=== PATIENT | male | born 1965 | race Caucasian/White ===

== ENCOUNTER → 2017-04-21 | Outpatient (CLI) | payer MEDICARE, MEDICAID ==
--- NOTE | 2017-04-21 13:53 | Diagnostic Imaging Report ---
INDICATION: Lymph node enlargement in the right neck. FINDINGS: The right lobe of the thyroid measures 3.9 x 1.6 x 1.9 cm and left lobe measures 5.3 x 1.6 x 1.7 cm. There is a hypoechoic nodule in the mid right lobe of the thyroid measuring 9 mm x 9 mm x 5 mm. The left lobe contains a tiny nodule with calcification measuring approximately 7 mm. Evaluation of the area of lump in the right neck was also performed. There is an ovoid homogeneous slightly hypoechoic nodule measuring 1.1 x 0.6 x 1.4 cm. This is just below the skin surface superficial to the musculature and may represent a lipoma. IMPRESSION: 1. Probable lipoma in the right neck at the area of palpable abnormality. Clinical followup to confirm stability is recommended. 2. Bilateral thyroid nodules. No dominant thyroid mass is detected. Dictated by: Dictated on workstation # [id number]
== END ==
LOC: RAD 12:41
PROVIDERS: ATTEND Nurse Practitioner Community Health
DX: E04.2 Nontoxic multinodular goiter (principal)
CPT/HCPCS: 76536

== ENCOUNTER 2018-05-26 05:32 | Outpatient (CLI) | payer MEDICARE, MEDICAID ==
[~2018-05-26] VITALS: Ht 177.8 cm; Wt 90.7 kg
[2018-05-26] MEDS ORDERED: GABA300C PO (13:19)
[2018-05-26] MEDS ORDERED: BUPR300T43 PO (13:19)
[2018-05-26] MEDS ORDERED: UBIQ100C3 PO (13:19)
[2018-05-26] MEDS ORDERED: VARE1TAB22 PO (13:19)
[2018-05-26] MEDS ORDERED: SERT50TA2 PO (13:19)
[2018-05-26] MEDS ORDERED: TAMS0.4C2 PO (13:19)
[2018-05-26] MEDS ORDERED: PRAV40TA2 PO (13:19)
== END 2018-05-26 13:25 | disposition home or self-care (01) ==
LOC: PREOP 05:32
PROVIDERS: ATTEND Surgery
DX: Z01.818 Encounter for other preprocedural examination (principal)

== ENCOUNTER 2018-05-29 06:58 | Day surgery (SDC) | payer MEDICARE, MEDICAID ==
[~2018-05-29] VITALS: Ht 177.8 cm; Wt 90.7 kg
[~2018-05-29 06:58] MED LIST: BUPR300T43 PO; GABA300C PO; PRAV40TA2 PO; SERT50TA2 PO; TAMS0.4C2 PO; UBIQ100C3 PO; VARE1TAB22 PO
[2018-05-29 07:05] VITALS: BP 136/66
[2018-05-29] MEDS ORDERED: LACTATED RINGERS 1,000 ML IV PRN (07:05)
--- OUTSIDE RECORDS SUMMARY | 2018-05-29 07:09 | XMS REPORT ---
Author Author EMERSON CHOPRA Organization [facility] Address [address] [place] [address] Care Team Providers Care Neurological Surgeon Name Role Phone EMERSON CHOPRA Unavailable PROBLEMS Type Condition ICD9-CM Code NKX60-HC Code Onset Dates Condition Status SNOMED Code Problem Partner relational problem Z63.0 Active 7516896344236 Problem Other iron deficiency anemia D50.8 Active 69793424 Problem Abnormal CBC R79.89 Active 237729448 Problem Depressive disorder, not elsewhere classified F32.9 Active 08160982 Problem Eye exam abnormal R93.8 Active 684015322 ALLERGIES Substance Reaction Event Type Date Status Bananas Unknown Non Drug Allergy Feb, Active [place] Unknown Non Drug Allergy Feb, Active ENCOUNTERS Encounter Location Date Diagnosis [place] [id number] [place] [address]292- 2610 Feb, [facility] [address] [address] Feb, Tobacco abuse Z72.0 [facility] [id number] [place] [address] 40438- 8659 05 Nov, 2017 Lipoma of neck D17.0 ; Shortness of breath R06.02 and Acute left-sided thoracic back pain M54.6 [facility] [id number] [place] [id number] Sep, Encounter for dental examination Z01.20 [facility] [address] [address]- [address] May, Partner relational problem Z63.0 [facility] [id number] [place] [address] 10785- 8690 02 Apr, 2017 Partner relational problem Z63.0 [facility] [id number] [place] [address] 14149- 5619 Mar, Other iron deficiency anemia D50.8 [facility] [address] [address]95- 6401 Mar, Lymph node enlargement R59.9 and Other iron deficiency anemia D50.8 [facility] [id number] [place] [address] 71899- 8225 Mar, Partner relational problem Z63.0 [facility] [address] 8[address]87- 9382 Dec, [facility] [address] [id number] Dec, Dental examination Z01.20 [facility] [address] [address]- 0051 Oct, [facility] [address] 44843- 1712 Oct, [facility] [id number] [place] [address] 51545- 1070 Aug, Anemia, unspecified type D64.9 [facility] [id number] [place] [address] 14942- 4493 15 Apr, 2016 [facility] [id number] [place] [address] 27828- 0981 15 Apr, 2016 Depressive disorder, not elsewhere classified F32.9 [facility] [id number] [place] [address] 26623- 4893 15 Apr, 2016 Other fatigue R53.83 [facility] [address] [id number] 13 Mar, 2016 Encounter for dental examination Z01.20 [facility] [id number] [place] [address] [id number] Feb, Dental examination Z01.20 [facility] [address] 83137- 4272 May, [facility] [place] [facility] [address] [id number] [place] [address]- 7344 16 Apr, 2016 Vision changes H53.9 [facility] [place] [facility] [address] [id number] [place] [address]- 2796 14 Jun, 2014 [facility] [place] [facility] [address] [id number] [place] [address]- 8366 Jun, [facility] [place] [facility] [address] [id number] [place] [address]- 3365 Apr, [facility] [place] [facility] [address] [id number] [place] [address]- 4051 Apr, [facility] [place] [facility] [address] [id number] [place] [address]- 2968 Apr, [facility] [place] [facility] [address] [id number] [place] [address]- 8030 Apr, [facility] [place] [facility] [address] [id number] [place] [address]- 6646 Oct, [facility] [place] [facility] [address] [id number] [place] [address]- 1202 Oct, [facility] [place] [facility] [address] [id number] [place] [address]- 8258 Oct, [facility] [place] [facility] [address] [id number] [place] [address]- 0417 Oct, [facility] [place] [facility] [address] [id number] [place] [address]- 4272 Oct, [facility] [place] [facility] [address] [id number] [place] [address]- 4484 Oct, [facility] [place] [facility] [address] [id number] [place] [address] Sep, [facility] [place] [facility] [address] [id number] [place] [address]- 9470 Sep, [facility] [place] [facility] [address] [id number] [place] [address]- 0058 July, [facility] [place] [facility] [address] [id number] [place] [address]- 0988 July, [facility] [place] [facility] [address] [id number] [place] [address]- 3827 May, [facility] [place] [facility] [address] [id number] [place] [address]- 1495 May, [facility] [place] [facility] [address] [id number] [place] [address]- 3173 Apr, [facility] [place] [facility] [address] [id number] [place] [address]- 9579 Apr, [facility] [place] [facility] [address] [id number] [place] [address]- 3104 Mar, [facility] [place] [facility] [address] [id number] [place] [address]- 2198 Mar, [facility] [place] [facility] [address] [id number] [place] [address]- 8345 Oct, [facility] [place] [facility] [address] [id number] [place] [address]- 4815 Oct, [facility] [place] [facility] [address] [id number] [place] [address]- 7107 Oct, [facility] [place] [facility] [address] [id number] [place] [address]- 6060 Apr, [facility] [place] [facility] [address] [id number] [place] [address]- 8406 Feb, [facility] [place] [facility] [address] [id number] [place] [address]- 2981 Feb, [facility] [place] [facility] [address] [id number] [place] [address]- 7970 Jan, [facility] [place] [facility] [address] [id number] [place] [address]- 0861 Jan, [facility] [place] [facility] [address] [id number] [place] [address]- 4962 Dec, [facility] [place] [facility] [address] [id number] [place] [address]- 5117 Dec, [facility] [place] [facility] [address] [id number] [place] [address]- 0798 Dec, [facility] [place] [facility] [address] [id number] [place] [address]- 8096 Dec, [facility] [place] [facility] [address] [id number] [place] [address]- 2680 Dec, [facility] [place] [facility] [address] [id number] [place] [address]- 1545 Dec, [facility] [place] [facility] [address] [id number] [place] [address]- 8677 Nov, [facility] [place] [facility] [address] [id number] [place] [address]- 4968 17 Nov, 2011 [facility] [place] [facility] [address] [id number] [place] [address]- 1433 14 Nov, 2011 [facility] [place] [facility] [address] [id number] [place] [address]- 0411 Oct, [facility] [place] [facility] [address] [id number] [place] [address]- 8746 Sep, [facility] [place] [facility] [address] [id number] [place] [address]- 1408 Sep, [facility] [place] [facility] [address] [id number] [place] 0474 Sep, [facility] [place] [facility] [address] [id number] [place] [address]- 1506 Jun, [facility] [place] [facility] [address] [id number] [place] 5883 Jun, [facility] [address] [facility] [id number] [place] [address]- 1515 Jun, [facility] [address] [facility] [id number], [place] [address]- 4447 Feb, [facility] [address] [facility] [id number][place] [address]- 7455 Jan, [facility] [address] [facility] [id number], [place] [address]- 2121 July, IMMUNIZATIONS No Known Immunizations SOCIAL HISTORY Never Assessed REASON FOR VISIT Establish Care -KIMBER Fontanez PLAN OF CARE Activity Details Follow Up 2 Months Reason:smoking cessation and fasting labs VITAL SIGNS Height 70 in 2018-03-02 Weight 199.4 lbs 2018-03-02 Temperature 98.2 degrees Fahrenheit 2018-03-02 Heart Rate 90 bpm 2018-03-02 Respiratory Rate 18 2018-03-02 BMI 28.61 kg/m2 2018-03-02 Blood pressure systolic 128 mmHg 2018-03-02 Blood pressure diastolic 76 mmHg 2018-03-02 MEDICATIONS Medication Instructions Dosage Frequency Start Date End Date Duration Status Invega Trinza 410 MG/1.315ML 1.315 ml Active BuPROPion HCl 100 MG Orally Once a day 1 capsule 24h Active Tamsulosin HCl 0.4 MG Active Neurontin 300 MG Orally Once a day 1 capsule 24h Active Multi Complete Active Breo Ellipta Active Zoloft 50 MG Orally Once a day 1 tablet 24h Active Chantix Active RESULTS No Results PROCEDURES No Known procedures INSTRUCTIONS MEDICATIONS ADMINISTERED No Known Medications MEDICAL (GENERAL) HISTORY Type Description Date Medical History depression Medical History back trouble (pinched vertebrae) Medical History enlarged prostate Surgical History nasal reconstruction Surgical History tonsillectomy Surgical History colonoscy 2016 Hospitalization History surgeries Hospitalization History Mental Illness 2008
--- OUTSIDE RECORDS SUMMARY | 2018-05-29 07:09 | XMS REPORT ---
Author Author EMERSON CHOPRA Organization [facility] Address [address] [place] [address] Care Team Providers Care Apron Trimmer Name Role Phone EMERSON CHOPRA Unavailable PROBLEMS Type Condition ICD9-CM Code DWA55-FC Code Onset Dates Condition Status SNOMED Code Problem Other iron deficiency anemia D50.8 Active 57984143 Problem Partner relational problem Z63.0 Active 4371781003047 Problem Abnormal CBC R79.89 Active 486217253 Problem Eye exam abnormal R93.8 Active 755704356 Problem Depressive disorder, not elsewhere classified F32.9 Active 94100784 ALLERGIES Substance Reaction Event Type Date Status Bananas Unknown Non Drug Allergy Apr, Active [place] Unknown Non Drug Allergy Apr, Active ENCOUNTERS Encounter Location Date Diagnosis [place] [id number] [place] [address] 68137- 1312 May, [place] [address] [address]- 1534 Apr, [place] [id number] [place] [address] 69663- 0971 Apr, Lipoma of neck D17.0 ; Tobacco abuse Z72.0 and Screening, lipid Z13.220 [facility] [id number] [place] [address] 87902- 9058 Feb, [place] [address] [address]14- 9868 Feb, Tobacco abuse Z72.0 [place] [id number] [place] [address] 69292- 7159 05 Nov, 2017 Lipoma of neck D17.0 ; Shortness of breath R06.02 and Acute left-sided thoracic back pain M54.6 [facility] [address] [place] [address] [id number] Sep, Encounter for dental examination Z01.20 [facility] [id number] [place] [address] 887202- 7026 May, Partner relational problem Z63.0 [facility] [id number] [place] [address] 41336- 7375 Apr, Partner relational problem Z63.0 [facility] [id number] [place] [address] 00526- 8346 Mar, Other iron deficiency anemia D50.8 [facility] [id number] [place] [address] 42021- 7105 Mar, Lymph node enlargement R59.9 and Other iron deficiency anemia D50.8 [facility] [id number] [place] [address] 92744- 9165 Mar, Partner relational problem Z63.0 [facility] [id number] [place] [address] 05683- 9265 Dec, [facility] [id number] [place] [address] [id number] Dec, Dental examination Z01.20 [facility] [id number] [place] [address] 15094- 3728 Oct, [facility] [id number] [place] [address] 66418- 7597 Oct, [facility] [id number] [place] [address] 95668- 3958 Aug, Anemia, unspecified type D64.9 [facility] [id number] [place] [address] 11393- 6070 15 Apr, 2016 [facility] [id number] [place] [address] 35119- 9743 Apr, Depressive disorder, not elsewhere classified F32.9 [facility] [address], [place] [address]- 6999 15 Apr, 2016 Other fatigue R53.83 [facility] [id number] [place] [address] [id number] 13 Mar, 2016 Encounter for dental examination Z01.20 [facility] [address] [id number] Feb, Dental examination Z01.20 [facility] [id number] [place] [address] 07080- 6299 02 May, 2015 [facility] [id number] [place] [address] 60569- 8131 16 Apr, 2015 Vision changes H53.9 [facility] [id number] [place] [address] 26053- 2529 14 Jun, 2014 [facility] [id number] [place] [address] 06482- 4166 Jun, [facility] [address], [place] [address]- 7743 12 Apr, 2014 [facility] [address], [place] [address]- 0110 Apr, [facility] [address], [place] [address]- 3942 10 Apr, 2014 [facility] [address], [place] [address]- 8866 Apr, [facility] [address], [place] [address]- 2450 Oct, [facility] [address], [place] [address]- 9718 Oct, [facility] [address], [place] [address]- 6239 Oct, [facility] [address], [place] [address]- 9747 Oct, [facility] [place] [facility] [address] [id number] [place] [address]- 3780 Oct, [facility] [place] [facility] [address] [id number] [place] [address]- 0748 Oct, [facility] [place] [facility] [address] [id number] [place] [address]- 0336 Sep, [facility] [place] [facility] [address] [id number] [place] [address]- 3997 Sep, [facility] [place] [facility] [address] [id number] [place] [address]- 8480 July, [facility] [place] [facility] [address] [id number] [place] [address]- 6460 July, [facility] [place] [facility] [address] [id number] [place] [address]- 0983 May, [facility] [place] [facility] [address] [id number] [place] [address]- 1963 May, [facility] [place] [facility] [address] [id number] [place] [address]- 0658 Apr, [facility] [place] [facility] [address] [id number] [place] [address]- 3449 Apr, [facility] [place] [facility] [address] [id number] [place] [address]- 6947 Mar, [facility] [place] [facility] [address] [id number] [place] [address]- 7311 Mar, [facility] [place] [facility] [address] [id number] [place] [address]- 7291 Oct, [facility] [place] [facility] [address] [id number] [place] [address]- 5416 Oct, [facility] [place] [facility] [address] [id number] [place] [address]- 2001 Oct, [facility] [place] [facility] [address] [id number], [place] [address]- 0794 Apr, [facility] [place] [facility] [address] [id number] [place] [address]- 7838 Feb, [facility] [place] [facility] [address] [facility] [id number] [place] 9079 Feb, [facility] [place] [facility] [address] [facility] [id number] [place] [address]- 8353 Jan, [facility] [place] [facility] [address] [id number] [place] [address]- 3655 Jan, [facility] [place] [facility] [address] [facility] [id number] [place] [address], [place] [address]- 3204 Dec, [facility] [place] [facility] [address] [facility] [id number] [place] [address]- 4039 Dec, [facility] [place] [facility] [address] [place] [address]- 6374 Dec, [facility] [place] [facility] [address] [facility] [id number] [place] [address]- 9012 Dec, [facility] [place] [facility] [id number] [place] [address]- 8750 Dec, [facility] [place] [facility] [address] [facility] [id number] [place] [address]- 8089 Dec, [facility] [place] [facility] [address] [facility] [id number], [place] [address]- 1121 24 Nov, 2011 [facility] [place] [facility] [address] [facility] [id number], [place] [address]- 6564 17 Nov, 2011 [facility] [place] [facility] [address] [facility] [id number] [place] [address]- 0361 14 Nov, 2011 [facility] [place] [facility] [address] [facility] [id number] [place] 5907 28 Oct, 2011 [facility] [place] [facility] [id number], [place] [address]- 2213 Sep, [facility] [place] [facility] [id number], [place] [address]- 4446 Sep, [facility] [address] 0205 Sep, [facility] [address], [place] [address]- 6343 Jun, [facility] [address], [place] [address]- 7851 Jun, [facility] [address], [place] [address]- 5631 Jun, [facility] [address], [place] [address]- 3837 Feb, [facility] [address], [place] [address]- 8073 Jan, [facility] [address], [place] [address]- 2260 July, IMMUNIZATIONS No Known Immunizations SOCIAL HISTORY Never Assessed REASON FOR VISIT Lipoma f/u --KIMBER Fontanez PLAN OF CARE Activity Details Follow Up 4 Weeks Reason:smoking cessation VITAL SIGNS Height 70 in 2018-05-04 Weight 199.9 lbs 2018-05-04 Temperature 98.4 degrees Fahrenheit 2018-05-04 Heart Rate 102 bpm 2018-05-04 Respiratory Rate 18 2018-05-04 BMI 28.68 kg/m2 2018-05-04 Blood pressure systolic 122 mmHg 2018-05-04 Blood pressure diastolic 68 mmHg 2018-05-04 MEDICATIONS Medication Instructions Dosage Frequency Start Date End Date Duration Status Invega Trinza 410 MG/1.315ML 1.315 ml Active Multi Complete Active Chantix 1 MG Orally Twice a day 1 capsule 12h 30 days Active Neurontin 300 MG Orally Once a day 1 capsule 24h Active Zoloft 50 MG Orally Once a day 1 tablet 24h Active Breo Ellipta Active BuPROPion HCl 100 MG Orally Once a day 1 capsule 24h Active Tamsulosin HCl 0.4 MG Active RESULTS No Results PROCEDURES No Known procedures INSTRUCTIONS MEDICATIONS ADMINISTERED No Known Medications MEDICAL (GENERAL) HISTORY Type Description Date Medical History depression Medical History back trouble (pinched vertebrae) Medical History enlarged prostate Surgical History nasal reconstruction Surgical History tonsillectomy Surgical History colonoscy 2016 Hospitalization History surgeries Hospitalization History Mental Illness 2009
--- OUTSIDE RECORDS SUMMARY | 2018-05-29 07:09 | XMS REPORT ---
Author Author EMERSON CHOPRA Organization [facility] Address [address] [place] [address] Care Team Providers Care Senior Pastor Name Role Phone EMERSON CHOPRA Unavailable PROBLEMS Type Condition ICD9-CM Code EHR67-GC Code Onset Dates Condition Status SNOMED Code Problem Partner relational problem Z63.0 Active 7723352977498 Problem Other iron deficiency anemia D50.8 Active 68279543 Problem Abnormal CBC R79.89 Active 505874886 Problem Depressive disorder, not elsewhere classified F32.9 Active 03799924 Problem Eye exam abnormal R93.8 Active 054521603 ALLERGIES No Information ENCOUNTERS Encounter Location Date Diagnosis [place] [id number] [address] Feb, [place] [address] [address]- [address] Feb, Tobacco abuse Z72.0 [place] [address] [address]- [address] 05 Nov, 2017 Lipoma of neck D17.0 ; Shortness of breath R06.02 and Acute left-sided thoracic back pain M54.6 [facility] [address] [place] [place] [id number] [place] [address] [id number] Sep, Encounter for dental examination Z01.20 [place] [address] [place] [id number] [place] [address] 57047- 4704 May, Partner relational problem Z63.0 [place] [address] [address]- 1583 Apr, Partner relational problem Z63.0 [place] [address] [place] [id number] [place] [address] 14057- 8697 Mar, Other iron deficiency anemia D50.8 [facility] [id number] [place] [address] 53566- 5670 Mar, Lymph node enlargement R59.9 and Other iron deficiency anemia D50.8 [facility] [address] [id number] [place] [address] 88721- 8071 Mar, Partner relational problem Z63.0 [facility] [address] [address]- [address] Dec, [facility] [address] [id number] [place] [address] [id number] Dec, Dental examination Z01.20 [facility] [address] [id number] [place] [address] 41606- 5927 Oct, [facility] [address] [place] [id number] [place] [address] 34944- 9413 Oct, [facility] [id number] [place] [address] 18744- 1213 Aug, Anemia, unspecified type D64.9 [facility] [address] [id number] [place] [address] 87913- 0920 15 Apr, 2016 [facility] [address] [place] [id number] [place] [address] 97464- 8705 15 Apr, 2016 Depressive disorder, not elsewhere classified F32.9 [facility] [id number] [place] [address] 72376- 2038 15 Apr, 2016 Other fatigue R53.83 [facility] [address] [place] [address] [id number] Mar, Encounter for dental examination Z01.20 [facility] [address] [id number] [place] [address] [id number] Feb, Dental examination Z01.20 [facility] [address] [id number] [place] [address] 62552- 2846 May, [facility] [address] [place] [address] [address] [place] [address]- 3083 16 Apr, 2015 Vision changes H53.9 [facility] [place] [facility] [address] [id number] [place] [address]- 5096 14 Jun, 2014 [facility] [place] [facility] [address] [id number] [place] [address]- 6244 13 Jun, 2014 [facility] [place] [facility] [address] [id number] [place] [address]- 9929 12 Apr, 2014 [facility] [place] [facility] [address] [id number] [place] [address]- 8134 12 Apr, 2014 [facility] [place] [facility] [address] [id number] [place] [address]- 7525 10 Apr, 2014 [facility] [place] [facility] [address] [id number] [place] [address]- 0423 Apr, 2014 [facility] [place] [facility] [address] [id number] [place] [address]- 2189 Oct, [facility] [place] [facility] [address] [id number] [place] [address]- 4115 Oct, [facility] [place] [facility] [address] [id number] [place] [address]- 5265 Oct, [facility] [place] [facility] [address] [id number] [place] [address]- 4937 Oct, [facility] [place] [facility] [address] [id number] [place] [address]- 5192 Oct, [facility] [place] [facility] [address] [id number] [place] [address]- 6284 Oct, [facility] [place] [facility] [address] [id number] [place] [address]- 5862 Sep, [facility] [place] [facility] [address] [id number] [place] [address]- 8334 Sep, [facility] [place] [facility] [address] [id number] [place] [address]- 2546 July, [facility] [address] [id number] [place] [address]- 9442 July, [facility] [place] [facility] [address] [id number] [place] [address]- 9489 May, [facility] [place] [facility] [address] [id number] [place] [address]- 8355 May, [facility] [place] [facility] [address] [id number] [place] [address]- 3835 Apr, [facility] [place] [facility] [address] [id number] [place] [address]- 4089 Apr, [facility] [place] [facility] [address] [id number] [place] [address]- 6554 Mar, [facility] [place] [facility] [address] [id number] [place] [address]- 0353 Mar, [facility] [place] [facility] [address] [id number] [place] [address]- 5630 Oct, [facility] [place] [facility] [address] [id number] [place] [address]- 4475 Oct, [facility] [place] [facility] [address] [id number] [place] [address]- 0586 Oct, [facility] [place] [facility] [address] [id number] [place] [address]- 2696 Apr, [facility] [place] [facility] [address] [id number] [place] [address]- 0194 Feb, [facility] [place] [facility] [address] [id number] [place] [address]40 Feb, [facility] [place] [facility] [address] [id number] [place] [address]- 2120 Jan, [facility] [place] [facility] [address] [id number] [place] [address]- 1038 Jan, [facility] [place] [facility] [address] [id number] [place] [address]- 7156 Dec, [facility] [place] [facility] [address] [id number] [place] [address]- 2595 Dec, [facility] [place] [facility] [address] [id number] [place] 6415 Dec, [facility] [place] [facility] [address] [id number] [place] [address]- 2481 Dec, [facility] [place] [facility] [address] [id number] [place] [address]- 1780 Dec, [facility] [place] [facility] [address] [id number] [place] 1978 Dec, [facility] [place] [facility] [address] [id number] [place] [address]- 4835 Nov, [facility] [place] [facility] [address] [id number] [place] [address]- 8295 17 Nov, 2011 [facility] [place] [facility] [address] [id number] [place] [address]- 7450 14 Nov, 2011 [facility] [place] [facility] [address] [id number] [place] [address]- 6277 Oct, [facility] [place] [facility] [address] [id number] [place] 1670 Sep, [facility] [place] [facility] [address] [id number] [place] [address]- 8020 Sep, [facility] [place] [facility] [address] [id number] [place] [address]- 6296 Sep, [facility] [place] [facility] [address] [id number] [place] [address]- 7498 Jun, [facility] [place] [facility] [address] [id number] [place] [address]- 1026 Jun, [facility] [place] [facility] [address] [id number] [place] [address]- 9925 Jun, [facility] [address] [facility] [id number] [place] [address]- 9194 Feb, [facility] [address] [facility] [id number], [place] [address]- 5356 Jan, [facility] [address] [facility] [id number], [place] [address]- 6916 July, IMMUNIZATIONS No Known Immunizations SOCIAL HISTORY Never Assessed REASON FOR VISIT Medication Update PLAN OF CARE VITAL SIGNS MEDICATIONS Unknown Medications RESULTS No Results PROCEDURES No Known procedures INSTRUCTIONS MEDICATIONS ADMINISTERED No Known Medications MEDICAL (GENERAL) HISTORY Type Description Date Medical History depression Medical History back trouble (pinched vertebrae) Medical History enlarged prostate Surgical History nasal reconstruction Surgical History tonsillectomy Surgical History colonoscy 2016 Hospitalization History surgeries Hospitalization History Mental Illness 2008
--- OUTSIDE RECORDS SUMMARY | 2018-05-29 07:10 | XMS REPORT ---
Author Author CECILE SYED [facility] Address [address] [place] [address] Care Team Providers Care Shearing Machine Tender Name Role Phone CECILE SYED Unavailable PROBLEMS Type Condition ICD9-CM Code AZX64-UO Code Onset Dates Condition Status SNOMED Code Problem Partner relational problem Z63.0 Active [id number] Problem Other iron deficiency anemia D50.8 Active 26306583 Problem Abnormal CBC R79.89 Active 056462789 Problem Depressive disorder, not elsewhere classified F32.9 Active 42757111 Problem Eye exam abnormal R93.8 Active 134525224 ALLERGIES No Information ENCOUNTERS Encounter Location Date Diagnosis [facility] [address] [id number] Sep, Encounter for dental examination Z01.20 [facility] [address] [place] [id number] [place] [address] 29892- 4793 May, Partner relational problem Z63.0 [facility] [address] [place] [id number] [place] [address] 33294- 6480 Apr, Partner relational problem Z63.0 [facility] [address] [place] [id number] [place] [address] 58888- 4121 Mar, Other iron deficiency anemia D50.8 [facility] [address] [place] [id number] [place] [address] 95593- 0465 Mar, Lymph node enlargement R59.9 and Other iron deficiency anemia D50.8 [facility] [address] [address]- 7958 Mar, Partner relational problem Z63.0 [facility] [address] [place] [id number] [place] [address] 21213- 7027 Dec, [facility] [address] [id number] 10 Dec, 2016 Dental examination Z01.20 [facility] [address] [place] [place] [id number] [place] [address] 942471- 1426 Oct, [facility] [address] [place] [id number] [place] [address] 95712- 0127 Oct, [facility] [address] [place] [id number] [place] [address] 42262- 7092 Aug, Anemia, unspecified type D64.9 [facility] [address] [place] [id number] [place] [address] 482218- 1371 15 Apr, 2016 [facility] [address] [place] [id number] [place] [address] 530243- 4109 15 Apr, 2016 Depressive disorder, not elsewhere classified F32.9 [facility] [address] [place] [id number] [place] [address] 60294- 8310 15 Apr, 2016 Other fatigue R53.83 [facility] [address] [place] [address] [id number] Mar, Encounter for dental examination Z01.20 [facility] [address] [place] [id number] [place] [address] [id number] Feb, Dental examination Z01.20 [facility] [address] [address]- 3266 May, [facility] [address] [place] [id number] [place] [address] 69684- 1379 16 Apr, 2015 Vision changes H53.9 [facility] [address] [place] [address] 18303- 6042 Jun, [facility] [address] [place] [id number] [place] [address] 19409- 7319 Jun, [facility] [address] [address]- 1205 Apr, [facility] [address] [place] [address]- 2205 12 Apr, 2014 [facility] [place] [facility] [address] [id number] [place] [address]- 8062 Apr, [facility] [place] [facility] [address] [id number] [place] [address]- 8663 Apr, [facility] [place] [facility] [address] [id number] [place] [address]- 2076 Oct, [facility] [place] [facility] [address] [id number] [place] [address]- 5048 Oct, [facility] [place] [facility] [address] [id number] [place] [address]- 3929 Oct, [facility] [place] [facility] [address] [id number] [place] [address]- 6536 Oct, [facility] [place] [facility] [address] [id number] [place] [address]- 7197 Oct, [facility] [place] [facility] [address] [id number] [place] [address]- 9174 Oct, [facility] [place] [facility] [address] [id number] [place] [address]- 3089 Sep, [facility] [place] [facility] [address] [id number] [place] [address]- 8873 Sep, [facility] [place] [facility] [address] [id number] [place] [address]- 9889 July, [facility] [place] [facility] [address] [id number] [place] [address]- 1412 July, [facility] [place] [facility] [address] [id number] [place] [address]- 2910 May, [facility] [place] [facility] [address] [id number] [place] [address]- 3716 May, [facility] [place] [facility] [address] [id number] [place] [address]- 0820 Apr, [facility] [place] [facility] [address] [id number] [place] [address]- 8298 Apr, [facility] [place] [facility] [address] [id number] [place] [address]- 2732 Mar, [facility] [place] [facility] [address] [facility] [id number] [place] [address]- 7354 Mar, [facility] [place] [facility] [address] [id number] [place] [address]- 9179 Oct, [facility] [place] [facility] [address] [id number] [place] [address]- 4487 Oct, [facility] [place] [facility] [address] [id number] [place] [address]- 4563 Oct, [facility] [place] [facility] [address] [id number] [place] [address]- 1612 Apr, [facility] [place] [facility] [address] [id number] [place] [address]- 0729 Feb, [facility] [place] [facility] [address] [id number] [place] [address]- 3040 Feb, [facility] [place] [facility] [address] [id number] [place] [address]- 1650 Jan, [facility] [place] [facility] [address] [id number] [place] [address]- 8197 Jan, [facility] [place] [facility] [address] [id number], [place] [address]- 1124 Dec, [facility] [place] [facility] [address] [id number] [place] [address]- 6203 Dec, [facility] [place] [facility] [address] [facility] [id number] [place] [address]- 4051 Dec, [facility] [place] [facility] [address] [facility] [id number] [place] [address]- 2918 Dec, [facility] [place] [facility] [address] [facility] [id number], [place] [address]- 3855 Dec, [facility] [address] [facility] [id number], [place] [address]- 8467 Dec, [facility] [address] [facility] [id number], [place] [address]- 0677 Nov, [facility] [address] [facility] [id number], [place] [address]- 7690 Nov, [facility] [address] [facility] [id number], [place] [address]- 2146 Nov, [facility] [address] [facility] [id number], [place] [address]- 5702 Oct, [facility] [address] [facility] [id number], [place] [address]- 2938 Sep, [facility] [address], [place] [address]- 5257 Sep, [facility] [address] [place] [id number] 5629 Sep, [facility] [address], [place] [address]- 2937 Jun, [facility] [address] [place] [id number], [place] [address]- 7801 Jun, [facility] [address], [place] [address]- 6480 Jun, [facility] [address] [address] [id number], [place] [address]- 8046 Feb, [facility] [address], [place] [address]- 8733 Jan, [facility] [address] [id number], [place] [address]- 5205 July, IMMUNIZATIONS No Known Immunizations SOCIAL HISTORY Never Assessed REASON FOR VISIT Couples f/u PLAN OF CARE Activity Details Follow Up 4 Weeks Reason: F/U VITAL SIGNS MEDICATIONS Unknown Medications RESULTS No Results PROCEDURES Procedure Date Ordered Result Body Site RELATIONSHIP COUN May 29, 2017 INSTRUCTIONS MEDICATIONS ADMINISTERED No Known Medications MEDICAL (GENERAL) HISTORY Type Description Date Medical History depression Medical History back trouble (pinched vertebrae) Surgical History nasal reconstruction Surgical History tonsillectomy Surgical History colonoscy 2016 Hospitalization History surgeries Hospitalization History Mental Illness 2009
--- OUTSIDE RECORDS SUMMARY | 2018-05-29 07:10 | XMS REPORT ---
Author Author CECILE SYED [facility] Address [address] [place] [address] Care Team Providers Care Loader Engineer Name Role Phone CECILE SYED Unavailable PROBLEMS Type Condition ICD9-CM Code AGH97-OS Code Onset Dates Condition Status SNOMED Code Problem Partner relational problem Z63.0 Active [id number] Problem Other iron deficiency anemia D50.8 Active 99769403 Problem Abnormal CBC R79.89 Active 253233812 Problem Depressive disorder, not elsewhere classified F32.9 Active 11279557 Problem Eye exam abnormal R93.8 Active 398137004 ALLERGIES No Information ENCOUNTERS Encounter Location Date Diagnosis [facility] [id number] [place] [address] [id number] Sep, [facility] [id number] [place] [address] 66251- 9908 May, Partner relational problem Z63.0 [facility] [id number] [place] [address] 63119- 4777 Apr, Partner relational problem Z63.0 [facility] [id number] [place] [address] 09194- 8778 Mar, Other iron deficiency anemia D50.8 [facility] [id number] [place] [address] 77790- 5300 Mar, Lymph node enlargement R59.9 and Other iron deficiency anemia D50.8 [facility] [address] [address]- 1467 Mar, Partner relational problem Z63.0 [facility] [id number] [place] [address] 48124- 7611 Dec, [facility] [address], [place] [id number] Dec, Dental examination Z01.20 [facility] [id number] [place] [address] 29376- 5166 Oct, [facility] [id number] [place] [address] 18460- 0201 Oct, [facility] [id number] [place] [address] 23050- 7905 Aug, Anemia, unspecified type D64.9 [facility] [id number] [place] [address] 38931- 9960 15 Apr, 2016 [facility] [address] 62761- 8693 15 Apr, 2016 Depressive disorder, not elsewhere classified F32.9 [facility] [id number] [place] [address] 58464- 4281 15 Apr, 2016 Other fatigue R53.83 [facility] [id number] [place] [address] [id number] Mar, Encounter for dental examination Z01.20 [facility] [id number] [place] [address] [id number] Feb, Dental examination Z01.20 [facility] [id number] [place] [address] 05745- 5566 May, [facility] [id number] [place] [address] 03653- 0335 16 Apr, 2015 Vision changes H53.9 [facility] [id number] [place] [address] 87097- 4618 Jun, [facility] [id number] [place] [address] 86636- 3909 Jun, [facility] [address] [place] [address] 64834- 2357 Apr, [facility] [id number] [place] [address] 95299- 8539 Apr, [facility] [place] [facility] [address] [id number] [place] [address] 2574 Apr, [facility] [place] [facility] [address] [id number] [place] [address]- 3169 Apr, [facility] [place] [facility] [address] [id number] [place] [address]- 0169 Oct, [facility] [place] [facility] [address] [id number] [place] [address]- 6362 Oct, [facility] [place] [facility] [address] [id number] [place] [address]- 8741 Oct, [facility] [place] [facility] [address] [id number] [place] [address]- 1804 Oct, [facility] [place] [facility] [address] [id number] [place] [address]- 4114 Oct, [facility] [place] [facility] [address] [id number] [place] [address]- 6129 Oct, [facility] [place] [facility] [address] [id number] [place] [address]- 3859 Sep, [facility] [place] [facility] [address] [id number] [place] [address]- 9289 Sep, [facility] [place] [facility] [address] [id number] [place] [address]- 5348 July, [facility] [place] [facility] [address] [id number] [place] [address]- 2608 July, [facility] [place] [facility] [address] [id number] [place] [address]- 8760 May, [facility] [place] [facility] [address] [id number] [place] [address]- 3627 May, [facility] [place] [facility] [address] [id number] [place] [address]- 5977 Apr, [facility] [place] [facility] [address] [id number] [place] [address]- 5066 Apr, [facility] [place] [facility] [address] [id number] [place] [address]- 9631 Mar, [facility] [place] [facility] [address] [id number] [place] [address]- 5484 Mar, [facility] [place] [facility] [address] [id number] [place] [address]- 8010 Oct, [facility] [place] [facility] [address] [id number] [place] [address]- 0824 Oct, [facility] [place] [facility] [address] [id number] [place] [address]- 9275 Oct, [facility] [place] [facility] [address] [id number] [place] [address]- 3840 Apr, [facility] [place] [facility] [address] [id number] [place] [address]- 0175 Feb, [facility] [place] [facility] [address] [id number] [place] [address]- 9428 Feb, [facility] [place] [facility] [address] [id number] [place] [address]- 0835 Jan, [facility] [place] [facility] [address] [id number] [place] [address]- 0646 Jan, [facility] [place] [facility] [address] [id number], [place] [address]- 6781 Dec, [facility] [place] [facility] [address] [id number] [place] [address]- 2623 Dec, [facility] [place] [facility] [address] [id number] [place] [address]- 6824 Dec, [facility] [place] [facility] [address] [id number], [place] [address]- 4286 Dec, [facility] [place] [facility] [address] [id number], [place] [address]- 7407 Dec, [facility] [address] [address] 7365 Dec, [facility] [address] [address] 9316 Nov, [facility] [address] [address]- 3552 Nov, [facility] [address], [place] [address]- 8092 Nov, [facility] [address], [place] [address]- 0689 Oct, [facility] [address], [place] [address]- 8477 Sep, [facility] [address], [place] [address]- 6372 Sep, [facility] [address], [place] [address]- 2716 Sep, [facility] [address], [place] [address]- 7298 Jun, [facility] [address] 1645 Jun, [facility] [address], [place] [address]- 9413 Jun, [facility] [address], [place] [address]- 0719 Feb, [facility] [address], [place] [address]- 0217 Jan, [facility] [address] [address] 2924 July, IMMUNIZATIONS No Known Immunizations SOCIAL HISTORY Never Assessed REASON FOR VISIT Couple Counseling PLAN OF CARE Activity Details Follow Up Next available Reason:BH F/U VITAL SIGNS MEDICATIONS Unknown Medications RESULTS No Results PROCEDURES Procedure Date Ordered Result Body Site RELATIONSHIP COUN 12 Apr 25, 2017 INSTRUCTIONS MEDICATIONS ADMINISTERED No Known Medications MEDICAL (GENERAL) HISTORY Type Description Date Medical History depression Medical History back trouble (pinched vertebrae) Surgical History nasal reconstruction Surgical History tonsillectomy Surgical History colonoscy 2016 Hospitalization History surgeries Hospitalization History Mental Illness 2009
--- OUTSIDE RECORDS SUMMARY | 2018-05-29 07:10 | XMS REPORT ---
Author Author EMERSON CHOPRA Organization [facility] Address [address] [place] [address] Care Team Providers Care Cost Accountant Name Role Phone EMERSON CHOPRA Unavailable PROBLEMS Type Condition ICD9-CM Code [id number] Code Onset Dates Condition Status SNOMED Code Problem Partner relational problem Z63.0 Active [id number] Problem Other iron deficiency anemia D50.8 Active 58135512 Problem Abnormal CBC R79.89 Active 982723679 Problem Depressive disorder, not elsewhere classified F32.9 Active 04089496 Problem Eye exam abnormal R93.8 Active 681519017 ALLERGIES Substance Reaction Event Type Date Status Bananas Unknown Non Drug Allergy Nov, Active [place] Unknown Non Drug Allergy Nov, Active ENCOUNTERS Encounter Location Date Diagnosis [facility] [id number] [place] [address] 80399- 9198 Nov, Lipoma of neck D17.0 ; Shortness of breath R06.02 and Acute left-sided thoracic back pain M54.6 [facility] [address] [place] [address] [id number] Sep, Encounter for dental examination Z01.20 [facility] [id number] [place] [address] 60896- 0599 May, Partner relational problem Z63.0 [facility] [id number] [place] [address] 81497- 8102 Apr, Partner relational problem Z63.0 [facility] [id number] [place] [address] 66661- 7496 Mar, Other iron deficiency anemia D50.8 [facility] [id number] [place] [address] 84546- 0619 Mar, Lymph node enlargement R59.9 and Other iron deficiency anemia D50.8 [facility] [id number] [place] [address] 23862- 6666 03 Mar, 2017 Partner relational problem Z63.0 [facility] [id number] [place] [address] 11529- 8138 Dec, [facility] [id number] [place] [address] [id number] Dec, Dental examination Z01.20 [facility] [id number] [place] [address] 14725- 1641 Oct, [facility] [address] [address]85- 8907 Oct, [facility] [id number] [place] [address] 24519- 2393 Aug, Anemia, unspecified type D64.9 [facility] [id number] [place] [address] 47490- 2406 15 Apr, 2016 [facility] [id number] [place] [address] 81518- 4276 15 Apr, 2016 Depressive disorder, not elsewhere classified F32.9 [facility] [id number] [place] [address] 00679- 3267 15 Apr, [address] [facility] [id number] [place] [address] [id number] Mar, Encounter for dental examination Z01.20 [facility] [address] [place] [address] [id number] Feb, Dental examination Z01.20 [facility] [id number] [place] [address] 03364- 3526 May, [facility] [id number] [place] [address] 41001- 7122 16 Apr, 2015 Vision changes H53.9 [facility] [id number] [place] [address] 60381- 9348 14 Jun, 2014 [facility] [place] [facility] [address] [id number] [place] [address]- 0519 Jun, [facility] [place] [facility] [address] [id number] [place] [address]- 5185 Apr, [facility] [place] [facility] [address] [id number] [place] [address]- 9836 Apr, [facility] [place] [facility] [address] [id number] [place] [address]- 3038 Apr, [facility] [place] [facility] [address] [id number] [place] [address]- 8191 Apr, [facility] [place] [facility] [address] [id number] [place] [address]- 8364 Oct, [facility] [place] [facility] [address] [id number] [place] [address]- 0806 Oct, [facility] [place] [facility] [address] [id number] [place] [address]- 3672 Oct, [facility] [place] [facility] [address] [id number] [place] [address]- 2122 Oct, [facility] [place] [facility] [address] [id number] [place] [address]- 8939 Oct, [facility] [place] [facility] [address] [id number] [place] [address]- 8450 Oct, [facility] [place] [facility] [address] [id number] [place] [address]- 4327 Sep, [facility] [place] [facility] [address] [id number] [place] [address]- 7711 Sep, [facility] [place] [facility] [address] [id number] [place] [address]- 0567 July, [facility] [place] [facility] [address] [id number] [place] [address]- 5779 July, [facility] [place] [facility] [address] [id number] [place] [address]- 1612 May, [facility] [place] [facility] [address] [id number] [place] [address]- 6219 May, [facility] [place] [facility] [address] [id number] [place] [address]- 2374 Apr, [facility] [place] [facility] [address] [id number] [place] [address]- 1486 Apr, [facility] [place] [facility] [address] [id number] [place] [address]- 3799 Mar, [facility] [place] [facility] [address] [id number] [place] [address]- 8161 Mar, [facility] [place] [facility] [address] [id number] [place] [address]- 3020 Oct, [facility] [place] [facility] [address] [id number] [place] [address]- 0990 Oct, [facility] [place] [facility] [address] [id number] [place] [address]- 7950 Oct, [facility] [place] [facility] [address] [id number] [place] [address]- 7201 Apr, [facility] [place] [facility] [address] [id number] [place] [address]- 0712 Feb, [facility] [place] [facility] [address] [id number] [address]- 3415 Feb, [facility] [place] [facility] [address] [id number] [place] [address]- 4115 Jan, [facility] [place] [facility] [address] [id number] [place] [address]- 9638 Jan, [facility] [place] [facility] [address] [id number] [place] [address]- 7250 Dec, [facility] [place] [facility] [address] [id number] [place] [address]- 1331 Dec, [facility] [place] [facility] [address] [id number] [place] [address]- 7341 Dec, [facility] [place] [facility] [address] [id number] [place] [address]- 7168 Dec, [facility] [place] [facility] [address] [id number] [place] [address]- 8097 Dec, [facility] [place] [facility] [address] [id number] [place] [address]- 8168 Dec, [facility] [place] [facility] [address] [id number] [place] [address]- 3732 24 Nov, 2011 [facility] [place] [facility] [address] [id number] [place] [address]- 0044 17 Nov, 2011 [facility] [place] [facility] [address] [id number] [place] [address]- 7570 14 Nov, 2011 [facility] [place] [facility] [address] [id number] [place] [address]- 5084 Oct, [facility] [place] [facility] [address] [facility] [id number] [place] [address]- 8368 Sep, [facility] [place] [facility] [address] [facility] [id number] [place] [address]- 7359 Sep, [facility] [place] [facility] [address] [id number] [place] [address]- 4732 Sep, [facility] [place] [facility] [address] [id number] [place] [address]- 5042 Jun, [facility] [place] [facility] [address] [id number] [place] 9589 Jun, [facility] [place] [facility] [address] [facility] [id number] [place] [address]- 2800 Jun, [facility] [place] [facility] [address] [facility] [id number] [place] [address]- 6266 Feb, [facility] [place] [facility] [address] [facility] [id number] [place] [address]- 8992 Jan, [facility] [address] [facility] [id number] [address]- 7812 July, IMMUNIZATIONS No Known Immunizations SOCIAL HISTORY Never Assessed REASON FOR VISIT Anemia f/u KIMBER Fontanez PLAN OF CARE Activity Details Follow Up 3 Months Reason:lipoma VITAL SIGNS Height 70 in 2017-11-26 Weight 191.3 lbs 2017-11-26 Temperature 97.9 degrees Fahrenheit 2017-11-26 Heart Rate 92 bpm 2017-11-26 Respiratory Rate 18 2017-11-26 BMI 27.45 kg/m2 2017-11-26 Blood pressure systolic 118 mmHg 2017-11-26 Blood pressure diastolic 62 mmHg 2017-11-26 MEDICATIONS Medication Instructions Dosage Frequency Start Date End Date Duration Status Co Q-10 100 MG Orally Once a day 1 capsule with a meal 24h Active Pravastatin Sodium Active BuPROPion HCl 100 MG Orally Once a day 1 capsule 24h Active Zoloft 50 MG Orally Once a day 1 tablet 24h Active Invega Trinza 410 MG/1.315ML 1.315 ml Active Tamsulosin HCl 0.4 MG Active Fish Oil 1000 MG Orally Once a day 1 capsule 24h Active Probiotic - Active Multi Complete Active RESULTS No Results PROCEDURES No Known procedures INSTRUCTIONS MEDICATIONS ADMINISTERED No Known Medications MEDICAL (GENERAL) HISTORY Type Description Date Medical History depression Medical History back trouble (pinched vertebrae) Medical History enlarged prostate Surgical History nasal reconstruction Surgical History tonsillectomy Surgical History colonoscy 2016 Hospitalization History surgeries Hospitalization History Mental Illness 2008
--- OUTSIDE RECORDS SUMMARY | 2018-05-29 07:10 | XMS REPORT ---
Author Author DRE OWEN [facility] Address [address] [place] [address] Care Team Providers Care Yarn Weight And Strength Tester Name Role Phone DRE OWEN Unavailable PROBLEMS Type Condition ICD9-CM Code EGU76-UX Code Onset Dates Condition Status SNOMED Code Problem Depressive disorder, not elsewhere classified F32.9 Active 95005151 Problem Encounter for dental examination Z01.20 Active 950545195 Problem Eye exam abnormal R93.8 Active 441118979 Problem Abnormal CBC R79.89 Active 568519709 ALLERGIES No Information SOCIAL HISTORY Never Assessed PLAN OF CARE VITAL SIGNS MEDICATIONS Unknown Medications RESULTS No Results PROCEDURES Procedure Date Ordered Result Body Site [facility] VISIT MENTAL HEALTH ESTAB PT May 08, 2016 Psychotherapy, patient &/family, 30 minutes, established patient May 08, 2016 IMMUNIZATIONS No Known Immunizations MEDICAL (GENERAL) HISTORY Type Description Date Medical History depression Medical History back trouble (pinched vertebrae) Surgical History nasal reconstruction Surgical History tonsillectomy Hospitalization History surgeries Hospitalization History Mental Illness 2008
--- OUTSIDE RECORDS SUMMARY | 2018-05-29 07:10 | XMS REPORT ---
Author Author EMERSON CHOPRA [facility] Address [address] [place] [address] Care Team Providers Care Antique Finisher Name Role Phone EMERSON CHOPRA Unavailable PROBLEMS Type Condition ICD9-CM Code CQS95-XO Code Onset Dates Condition Status SNOMED Code Problem Depressive disorder, not elsewhere classified F32.9 Active 13577277 Problem Encounter for dental examination Z01.20 Active 695689196 Problem Eye exam abnormal R93.8 Active 249553327 Problem Abnormal CBC R79.89 Active 057678388 ALLERGIES No Information SOCIAL HISTORY Never Assessed PLAN OF CARE VITAL SIGNS MEDICATIONS Unknown Medications RESULTS No Results PROCEDURES No Known procedures IMMUNIZATIONS No Known Immunizations MEDICAL (GENERAL) HISTORY Type Description Date Medical History depression Medical History back trouble (pinched vertebrae) Surgical History nasal reconstruction Surgical History tonsillectomy Hospitalization History surgeries Hospitalization History Mental Illness 2008
--- OUTSIDE RECORDS SUMMARY | 2018-05-29 07:10 | XMS REPORT ---
Author Author KATHLEEN MACHADO [facility] Address [address] [place] [address] Care Team Providers Care Entertainment & Media Correspondent Name Role Phone KATHLEEN MACHADO Unavailable PROBLEMS Type Condition ICD9-CM Code FGW20-QS Code Onset Dates Condition Status SNOMED Code Problem Partner relational problem Z63.0 Active 4772211084686 Problem Other iron deficiency anemia D50.8 Active 47172227 Problem Abnormal CBC R79.89 Active 660365496 Problem Depressive disorder, not elsewhere classified F32.9 Active 33413997 Problem Eye exam abnormal R93.8 Active 244640566 ALLERGIES Substance Reaction Event Type Date Status Bananas Unknown Non Drug Allergy Sep, Active [place] Unknown Non Drug Allergy Sep, Active ENCOUNTERS Encounter Location Date Diagnosis [facility] [id number] [place] [address] 72722- 8513 05 Nov, 2017 Lipoma of neck D17.0 ; Shortness of breath R06.02 and Acute left-sided thoracic back pain M54.6 [facility] [address] [place] [address] [id number] Sep, Encounter for dental examination Z01.20 [facility] [id number] [place] [address] 87925- 0431 May, Partner relational problem Z63.0 [facility] [address] [place] [address] 13353- 3002 Apr, Partner relational problem Z63.0 [facility] [id number] [place] [address] 96516- 5054 Mar, Other iron deficiency anemia D50.8 [facility] [id number] [place] [address] 42464- 6193 Mar, Lymph node enlargement R59.9 and Other iron deficiency anemia D50.8 [facility] [id number] [place] [address] 82412- 7844 Mar, Partner relational problem Z63.0 [facility] [id number] [place] [address] 44991- 6919 Dec, [facility] [id number] [place] [address] [phone] Dec, Dental examination Z01.20 [facility] [address] 64765- 5819 Oct, [facility] [address] 94283- 9983 Oct, [facility] [address] 44752- 2496 Aug, Anemia, unspecified type D64.9 [facility] [address] 92524- 8153 15 Apr, 2016 [facility] [id number] [place] [address] 26247- 6464 15 Apr, 2016 Depressive disorder, not elsewhere classified F32.9 [facility] [id number] [place] [address] 85979- 0930 15 Apr, 2016 Other fatigue R53.83 [facility] [id number] [place] [address] [id number] Mar, Encounter for dental examination Z01.20 [facility] [id number] [place] [address] [id number] Feb, Dental examination Z01.20 [facility] [address] 05249- 5650 May, [facility] [id number] [place] [address] 21510- 1948 16 Apr, 2015 Vision changes H53.9 [facility] [address] 22455- 9250 Jun, [facility] [place] [facility] [address] [id number] [place] [address]- 4379 Jun, [facility] [place] [facility] [address] [id number] [place] [address]- 0315 Apr, [facility] [place] [facility] [address] [id number] [place] [address]- 5960 Apr, [facility] [place] [facility] [address] [id number] [place] [address]- 2061 Apr, [facility] [place] [facility] [address] [id number] [place] [address]- 9700 Apr, [facility] [place] [facility] [address] [id number] [place] [address]- 9219 Oct, [facility] [place] [facility] [address] [id number] [place] [address]- 5583 Oct, [facility] [place] [facility] [address] [id number] [place] [address]- 2903 Oct, [facility] [place] [facility] [address] [id number] [place] [address]- 3610 Oct, [facility] [place] [facility] [address] [id number] [place] [address]- 6423 Oct, [facility] [place] [facility] [address] [id number] [place] [address]- 0339 Oct, [facility] [place] [facility] [address] [id number] [place] [address]- 0255 Sep, [facility] [place] [facility] [address] [id number] [place] [address]- 1862 Sep, [facility] [place] [facility] [address] [id number] [place] [address]- 0066 July, [facility] [place] [facility] [address] [id number] [place] [address]- 0800 July, [facility] [place] [facility] [address] [id number] [place] [address]- 6155 May, [facility] [place] [facility] [address] [id number] [place] [address]- 1711 May, [facility] [place] [facility] [address] [id number] [place] [address]- 8029 Apr, [facility] [place] [facility] [address] [id number] [place] [address]- 8106 Apr, [facility] [place] [facility] [address] [id number] [place] [address]- 7459 Mar, [facility] [place] [facility] [address] [id number] [place] [address]- 5075 Mar, [facility] [place] [facility] [address] [id number] [place] [address]- 7747 Oct, [facility] [place] [facility] [address] [id number] [place] [address]- 9127 Oct, [facility] [place] [facility] [address] [id number] [place] [address]- 5857 Oct, [facility] [place] [facility] [address] [id number] [place] [address]- 6774 Apr, [facility] [place] [facility] [address] [id number] [place] [address]- 2085 Feb, [facility] [place] [facility] [address] [id number] [place] [address]- 9340 Feb, [facility] [place] [facility] [address] [id number] [place] [address]- 3745 Jan, [facility] [place] [facility] [address] [id number] [place] [address]- 0986 Jan, [facility] [place] [facility] [address] [id number] [place] [address]- 2541 Dec, [facility] [place] [facility] [address] [id number] [place] [address]- 7274 Dec, [facility] [place] [facility] [address] [id number] [place] [address]- 4804 Dec, [facility] [place] [facility] [address] [id number] [place] [address]- 7466 Dec, [facility] [place] [facility] [address] [id number] [place] [address]- 1832 Dec, [facility] [place] [facility] [address] [id number] [place] [address]- 7025 Dec, [facility] [place] [facility] [address] [id number] [place] [address]- 2557 24 Nov, 2011 [facility] [place] [facility] [address] [id number] [place] [address]- 9555 17 Nov, 2011 [facility] [place] [facility] [address] [id number] [place] [address]- 4807 14 Nov, 2011 [facility] [place] [facility] [address] [id number] [address]- 7308 Oct, [facility] [place] [facility] [address] [id number] [place] [address]- 6615 Sep, [facility] [place] [facility] [address] [id number] [place] [address]- 3709 Sep, [facility] [place] [facility] [address] [id number], [place] [address]- 6388 Sep, [facility] [place] [facility] [address] [id number], [place] [address]- 0696 Jun, [facility] [place] [facility] [address] [id number] [place] [address]- 7293 Jun, [facility] [place] [facility] [address] [id number], [place] [address]- 2364 Jun, [facility] [place] [facility] [address] [id number] [place] [address]- 0063 Feb, [facility] [place] [facility] [address] [facility] [id number] [place] [address]- 8059 Jan, [facility] [address] [facility] [id number] [place] [address] July, IMMUNIZATIONS No Known Immunizations SOCIAL HISTORY Never Assessed REASON FOR VISIT prophy/craig PLAN OF CARE Activity Details Follow Up MICHELLE Reason:JET/Restorative same day VITAL SIGNS Blood pressure systolic 104 mmHg 2017-09-29 Blood pressure diastolic 67 mmHg 2017-09-29 MEDICATIONS Medication Instructions Dosage Frequency Start Date End Date Duration Status Multi Complete Not-Taking Vitamin D3 5,000 unit 2 times per day Oct, Not-Taking Atorvastatin Calcium 40 mg Orally Once a day 1/2 tablet 24h Not- Taking Pravastatin Sodium Active BuPROPion HCl 100 MG Orally Once a day 1 capsule 24h Active Vitamin B Complex Active Viibryd Not-Taking Invega Trinza 410 MG/1.315ML 1.315 ml Active RESULTS No Results PROCEDURES Procedure Date Ordered Result Body Site PROPHYLAXIS - ADULT September 29, 2017 BITEWINGS - THREE FILMS September 29, 2017 TOPICAL FLUORIDE VARNISH September 29, 2017 INSTRUCTIONS MEDICATIONS ADMINISTERED No Known Medications MEDICAL (GENERAL) HISTORY Type Description Date Medical History depression Medical History back trouble (pinched vertebrae) Medical History enlarged prostate Surgical History nasal reconstruction Surgical History tonsillectomy Surgical History colonoscy 2016 Hospitalization History surgeries Hospitalization History Mental Illness 2008
--- OUTSIDE RECORDS SUMMARY | 2018-05-29 07:10 | XMS REPORT ---
Author Author KATHLEEN MACHADO Organization [facility] Address [address] [place] [address] Care Team Providers Care Grain Broker Name Role Phone KATHLEEN MACHADO Unavailable PROBLEMS Type Condition ICD9-CM Code HFV36-UE Code Onset Dates Condition Status SNOMED Code Problem Depressive disorder, not elsewhere classified F32.9 Active 40180737 Problem Encounter for dental examination Z01.20 Active 636541138 Problem Eye exam abnormal R93.8 Active 779802529 Problem Abnormal CBC R79.89 Active 216056171 ALLERGIES Substance Reaction Event Type Date Status Bananas Unknown Non Drug Allergy Mar, Active [place] Unknown Non Drug Allergy Mar, Active SOCIAL HISTORY No smoking Hx information available PLAN OF CARE Activity Details Follow Up First Available Reason:Restorative VITAL SIGNS Heart Rate 77 bpm 2016-04-05 Blood pressure systolic 111 mmHg 2016-04-05 Blood pressure diastolic 61 mmHg 2016-04-05 MEDICATIONS Medication Instructions Dosage Frequency Start Date End Date Duration Status Co Q-10 100 mg Oct, Active Vitamin D3 5,000 unit 2 times per day Oct, Active Invega Trinza 410 MG/1.315ML 1.315 ml Active Atorvastatin Calcium 40 MG Orally Once a day 1 tablet 24h Active Cymbalta 60 MG Orally Once a day 1 capsule 24h Active RESULTS No Results PROCEDURES Procedure Date Ordered Related Diagnosis Body Site COMP ORAL EVALUATION - NEW/EST PT Apr 05, 2016 INTRAORL-PERIAPICAL 1 FILM 45212 Apr 05, 2016 PROPHYLAXIS - ADULT Apr 05, 2016 PANORAMIC FILM SEE ALSO CODE 77240 Apr 05, 2016 TOPICAL FLUORIDE VARNISH Apr 05, 2016 INTRAORL-PERIAPICAL EA ADD FILM Apr 05, 2016 INTRAORL-PERIAPICAL EA ADD FILM Apr 05, 2016 BITEWINGS - FOUR FILMS Apr 05, 2016 INTRAORL-PERIAPICAL EA ADD FILM Apr 05, 2016 IMMUNIZATIONS No Known Immunizations
--- OUTSIDE RECORDS SUMMARY | 2018-05-29 07:10 | XMS REPORT ---
Author Author EMERSON CHOPRA Organization [facility] Address [address] [place] [address] Care Team Providers Care Relay Checker Name Role Phone EMERSON CHOPRA Unavailable PROBLEMS Type Condition ICD9-CM Code THQ89-JN Code Onset Dates Condition Status SNOMED Code Problem Partner relational problem Z63.0 Active [id number] Problem Other iron deficiency anemia D50.8 Active 21406507 Problem Abnormal CBC R79.89 Active 266779196 Problem Depressive disorder, not elsewhere classified F32.9 Active 91196129 Problem Eye exam abnormal R93.8 Active 258037840 ALLERGIES No Information ENCOUNTERS Encounter Location Date Diagnosis [facility] [address] [place] [address] [id number] Sep, [facility] [id number] [place] [address] 78858- 0318 May, Partner relational problem Z63.0 [facility] [id number] [place] [address] 70111- 9126 Apr, Partner relational problem Z63.0 [facility] [address] [place] [address] 46470- 1432 Mar, Other iron deficiency anemia D50.8 [facility] [address] [place] [address] 26029- 8118 Mar, Lymph node enlargement R59.9 and Other iron deficiency anemia D50.8 [facility] [id number] [place] [address] 59785- 7405 Mar, Partner relational problem Z63.0 [facility] [address] [place] [address] 14559- 6787 Dec, [facility] [address] [place] [id number] Dec, Dental examination Z01.20 [facility] [id number] [place] [address] 01145- 7909 Oct, [facility] [id number] [place] [address] 80220- 8372 Oct, [facility] [id number] [place] [address] 81523- 1153 Aug, Anemia, unspecified type D64.9 [facility] [id number] [place] [address] 60488- 5830 15 Apr, 2016 [facility] [id number] [place] [address] 74558- 8416 15 Apr, 2016 Depressive disorder, not elsewhere classified F32.9 [facility] [id number] [place] [address] 53365- 9476 Apr, Other fatigue R53.83 [facility] [id number] [place] [address] [phone] Mar, Encounter for dental examination Z01.20 [facility] [id number] [place] [address] [phone] Feb, Dental examination Z01.20 [facility] [id number] [place] [address] 81479- 2986 May, [facility] [id number] [place] [address] 95131- 6385 16 Apr, 2015 Vision changes H53.9 [facility] [id number] [place] [address] 10617- 9775 Jun, [facility] [id number] [place] [address] 49922- 4105 Jun, [facility] [address] [place] [address] 37718- 8388 Apr, [facility] [id number] [address], [place] [address]- 2275 Apr, [facility] [place] [facility] [address] [id number] [place] [address]- 7272 Apr, [facility] [place] [facility] [address] [id number] [place] [address]- 4529 Apr, [facility] [place] [facility] [address] [id number] [place] [address]- 9636 Oct, [facility] [place] [facility] [address] [id number] [place] [address]- 8036 Oct, [facility] [place] [facility] [address] [id number] [place] [address]- 9558 Oct, [facility] [place] [facility] [address] [id number] [place] [address]- 2078 Oct, [facility] [place] [facility] [address] [id number] [place] [address]- 4220 Oct, [facility] [place] [facility] [address] [id number] [place] [address]- 4647 Oct, [facility] [place] [facility] [address] [id number] [place] [address]- 5546 Sep, [facility] [place] [facility] [address] [id number] [place] [address]- 1986 Sep, [facility] [place] [facility] [address] [id number] [place] [address]- 8124 July, [facility] [place] [facility] [address] [id number] [place] [address]- 8654 July, [facility] [place] [facility] [address] [id number] [place] [address]- 2764 May, [facility] [place] [facility] [address] [id number] [place] [address]- 8866 May, [facility] [place] [facility] [address] [id number] [place] [address]- 4700 Apr, [facility] [place] [facility] [address] [id number] [place] [address]- 0606 Apr, [facility] [place] [facility] [address] [id number] [place] [address]- 1455 Mar, [facility] [place] [facility] [address] [id number] [place] [address]- 8526 Mar, [facility] [place] [facility] [address] [id number] [place] [address]- 2224 Oct, [facility] [place] [facility] [address] [id number] [place] [address]- 4260 Oct, [facility] [place] [facility] [address] [id number] [place] [address]- 6296 Oct, [facility] [place] [facility] [address] [id number] [place] [address]- 9602 Apr, [facility] [place] [facility] [address] [id number] [place] [address]- 8860 Feb, [facility] [place] [facility] [address] [id number] [place] [address]- 5621 Feb, [facility] [place] [facility] [address] [facility] [id number], [place] [address]- 9941 Jan, [facility] [place] [facility] [address] [id number], [place] [address]- 5547 Jan, [facility] [place] [facility] [address] [id number], [place] [address]- 3238 Dec, [facility] [place] [facility] [address] [id number] [place] [address]- 0931 Dec, [facility] [place] [facility] [address] [id number], [place] [address]- 8698 Dec, [facility] [place] [facility] [address] [id number], [place] [address]- 2010 Dec, [facility] [place] [facility] [address] [id number], [place] [address]- 6037 Dec, [facility] [address], [place] [address]- 5468 Dec, [facility] [address], [place] [address]- 0826 Nov, [facility] [address], [place] [address]- 8886 Nov, [facility] [address], [place] [address]- 5533 Nov, [facility] [address], [place] [address]- 8833 Oct, [facility] [address], [place] [address]- 8512 Sep, [facility] [address], [place] [address]- 5899 Sep, [facility] [address], [place] [address]- 3363 Sep, [facility] [address], [place] [address]- 2802 Jun, [facility] [address], [place] [address]- 5550 Jun, [facility] [address], [place] [address]- 8336 Jun, [facility] [id number], [place] [address]- 8287 Feb, [facility] [address], [place] [address]- 4758 Jan, [facility] [address], [place] [address]- 1741 July, IMMUNIZATIONS No Known Immunizations SOCIAL HISTORY Never Assessed REASON FOR VISIT Lab (walk-in) PLAN OF CARE VITAL SIGNS MEDICATIONS Unknown Medications RESULTS No Results PROCEDURES Procedure Date Ordered Result Body Site [facility] Apr 18, 2017 VENCARL, ROUTINE* Apr 18, 2017 INSTRUCTIONS MEDICATIONS ADMINISTERED No Known Medications MEDICAL (GENERAL) HISTORY Type Description Date Medical History depression Medical History back trouble (pinched vertebrae) Surgical History nasal reconstruction Surgical History tonsillectomy Surgical History colonoscy 2016 Hospitalization History surgeries Hospitalization History Mental Illness 2009
--- OUTSIDE RECORDS SUMMARY | 2018-05-29 07:11 | XMS REPORT | Continuity of Care Document ---
Author Author [facility] Address Unknown Phone Unavailable Allergies Active Description Code Type Severity Reaction Onset Reported/Identified Relationship to Patient Clinical Status Yes NO KNOWN DRUG ALLERGIES UNKNOWN NO KNOWN DRUG ALLERG Yes OTHER UNKNOWN UNKNOWN Yes Bananas Food Allergy N/A N/A 06/24/2011 Yes [place] Food Allergy N/A N/A 06/24/2011 Yes Bananas Food Allergy 06/24/2011 Yes [place] Food Allergy 06/24/2011 Yes No Known Drug Allergies [id number] Drug Allergy Unknown N/A 05/26/2018 Medications There is no data. Problems Date Dx Coded Attending Type Code Diagnosis Diagnosed By 07/31/2010 719.41 PAIN IN JOINT INVOLVING SHOULDER REGION 07/31/2010 719.41 PAIN IN JOINT INVOLVING SHOULDER REGION 07/31/2010 719.41 PAIN IN JOINT INVOLVING SHOULDER REGION 07/31/2010 719.41 PAIN IN JOINT INVOLVING SHOULDER REGION 07/31/2010 MONCHO TOLEDO DDS 719.41 PAIN IN JOINT INVOLVING SHOULDER REGION 07/31/2010 EMERSON CHOPRA APRN 719.41 PAIN IN JOINT INVOLVING SHOULDER REGION 07/31/2010 EMERSON CHOPRA APRN S 719.41 PAIN IN JOINT INVOLVING SHOULDER REGION 07/31/2010 EMERSON CHOPRA APRN S 719.41 PAIN IN JOINT INVOLVING SHOULDER REGION 07/31/2010 EMERSON CHOPRA APRN S 719.41 PAIN IN JOINT INVOLVING SHOULDER REGION 07/31/2010 RADHA THOMPSON DDS 719.41 PAIN IN JOINT INVOLVING SHOULDER REGION 08/30/2010 726.10 DISORDERS OF BURSAE AND TENDONS IN SHOULDER REGION UNSPECIFIED 08/30/2010 726.10 DISORDERS OF BURSAE AND TENDONS IN SHOULDER REGION UNSPECIFIED 08/30/2010 726.10 DISORDERS OF BURSAE AND TENDONS IN SHOULDER REGION UNSPECIFIED 08/30/2010 726.10 DISORDERS OF BURSAE AND TENDONS IN SHOULDER REGION UNSPECIFIED 08/30/2010 MONCHO TOLEDO DDS 726.10 DISORDERS OF BURSAE AND TENDONS IN SHOULDER REGION UNSPECIFIED 08/30/2010 EMERSON CHOPRA APRN S 726.10 DISORDERS OF BURSAE AND TENDONS IN SHOULDER REGION UNSPECIFIED 08/30/2010 EMERSON CHOPRA APRN S 726.10 DISORDERS OF BURSAE AND TENDONS IN SHOULDER REGION UNSPECIFIED 08/30/2010 EMERSON CHOPRA APRN S 726.10 DISORDERS OF BURSAE AND TENDONS IN SHOULDER REGION UNSPECIFIED 08/30/2010 EMERSON CHOPRA APRN 726.10 DISORDERS OF BURSAE AND TENDONS IN SHOULDER REGION UNSPECIFIED 08/30/2010 RADHA THOMPSON DDS 726.10 DISORDERS OF BURSAE AND TENDONS IN SHOULDER REGION UNSPECIFIED 02/11/2011 V04.81 FLU DX (3 YRS AND ABOVE, IM) 02/11/2011 V04.81 FLU DX (3 YRS AND ABOVE, IM) 02/11/2011 V04.81 FLU DX (3 YRS AND ABOVE, IM) 02/11/2011 V04.81 FLU DX (3 YRS AND ABOVE, IM) 02/11/2011 TRE HOBSON, MONCHO Teran V04.81 FLU DX (3 YRS AND ABOVE, IM) 02/11/2011 SINDI CHOPRA APRNA S V04.81 FLU DX (3 YRS AND ABOVE, IM) 02/11/2011 SINDI CHOPRA APRNA S V04.81 FLU DX (3 YRS AND ABOVE, IM) 02/11/2011 SINDI CHOPRA APRNA S V04.81 FLU DX (3 YRS AND ABOVE, IM) 02/11/2011 SINDI CHOPRA APRNA S V04.81 FLU DX (3 YRS AND ABOVE, IM) 02/11/2011 RADHA THOMPSON DDS V04.81 FLU DX (3 YRS AND ABOVE, IM) 06/24/2011 272.4 HYPERLIPIDEMIA 06/24/2011 305.1 NICOTINE DEPENDENCE 06/24/2011 789.06 abdominal pain in the central upper belly (epigastric) 06/24/2011 V17.49 reported family history of heart disease 06/24/2011 V70.0 EXAM - ROUTINE H&P 06/24/2011 272.4 HYPERLIPIDEMIA 06/24/2011 305.1 NICOTINE DEPENDENCE 06/24/2011 789.06 abdominal pain in the central upper belly (epigastric) 06/24/2011 V17.49 reported family history of heart disease 06/24/2011 V70.0 EXAM - ROUTINE H&P 06/24/2011 272.4 HYPERLIPIDEMIA 06/24/2011 305.1 NICOTINE DEPENDENCE 06/24/2011 789.06 abdominal pain in the central upper belly (epigastric) 06/24/2011 V17.49 reported family history of heart disease 06/24/2011 V70.0 EXAM - ROUTINE H&P 06/24/2011 272.4 HYPERLIPIDEMIA 06/24/2011 305.1 NICOTINE DEPENDENCE 06/24/2011 789.06 ABDOMINAL PAIN IN THE CENTRAL UPPER BELLY (EPIGASTRIC) 06/24/2011 V17.49 reported family history of heart disease 06/24/2011 V70.0 EXAM - ROUTINE H&P 06/24/2011 MONCHO TOLEDO DDS 272.4 HYPERLIPIDEMIA 06/24/2011 MONCHO TOLEDO DDS 305.1 NICOTINE DEPENDENCE 06/24/2011 MONCHO TOLEDO DDS 789.06 ABDOMINAL PAIN IN THE CENTRAL UPPER BELLY (EPIGASTRIC) 06/24/2011 MONCHO TOLEDO DDS V17.49 reported family history of heart disease 06/24/2011 MONCHO TOLEDO DDS V70.0 EXAM - ROUTINE H&P 06/24/2011 EMERSON CHOPRA APRN S 272.4 HYPERLIPIDEMIA 06/24/2011 EMERSON CHOPRA APRN S 305.1 NICOTINE DEPENDENCE 06/24/2011 EMERSON CHOPRA APRN 789.06 ABDOMINAL PAIN IN THE CENTRAL UPPER BELLY (EPIGASTRIC) 06/24/2011 EMERSON CHOPRA APRN V17.49 reported family history of heart disease 06/24/2011 EMERSON CHOPRA APRN V70.0 EXAM - ROUTINE H&P 06/24/2011 EMERSON CHOPRA APRN S 272.4 HYPERLIPIDEMIA 06/24/2011 EMERSON CHOPRA APRN S 305.1 NICOTINE DEPENDENCE 06/24/2011 EMERSON CHOPRA APRN S 789.06 ABDOMINAL PAIN IN THE CENTRAL UPPER BELLY (EPIGASTRIC) 06/24/2011 EMERSON CHOPRA APRN V17.49 reported family history of heart disease 06/24/2011 EMERSON CHOPRA APRN V70.0 EXAM - ROUTINE H&P 06/24/2011 EMERSON CHOPRA APRN S 272.4 HYPERLIPIDEMIA 06/24/2011 EMERSON CHOPRA APRN S 305.1 NICOTINE DEPENDENCE 06/24/2011 EMERSON CHOPRA APRN 789.06 ABDOMINAL PAIN IN THE CENTRAL UPPER BELLY (EPIGASTRIC) 06/24/2011 EMERSON CHOPRA APRN V17.49 reported family history of heart disease 06/24/2011 EMERSON CHOPRA APRN V70.0 EXAM - ROUTINE H&P 06/24/2011 EMERSON HCOPRA APRN 272.4 HYPERLIPIDEMIA 06/24/2011 EMERSON CHOPRA APRN 305.1 NICOTINE DEPENDENCE 06/24/2011 EMERSON CHOPRA APRN 789.06 ABDOMINAL PAIN IN THE CENTRAL UPPER BELLY (EPIGASTRIC) 06/24/2011 EMERSON CHOPRA APRN V17.49 reported family history of heart disease 06/24/2011 EMERSON CHOPRA APRN V70.0 EXAM - ROUTINE H&P 06/24/2011 RADHA THOMPSON DDS 272.4 HYPERLIPIDEMIA 06/24/2011 RADHA THOMPSON DDS 305.1 NICOTINE DEPENDENCE 06/24/2011 RADHA THOMPSON DDS 789.06 ABDOMINAL PAIN IN THE CENTRAL UPPER BELLY (EPIGASTRIC) 06/24/2011 RADHA THOMPSNO DDS V17.49 reported family history of heart disease 06/24/2011 RADHA THOMPSON DDS V70.0 EXAM - ROUTINE H&P 10/03/2011 477.0 ALLERGIC RHINITIS DUE TO POLLEN 10/03/2011 535.00 ACUTE GASTRITIS (WITHOUT HEMORRHAGE) 10/03/2011 780.79 OTHER MALAISE AND FATIGUE 10/03/2011 477.0 ALLERGIC RHINITIS DUE TO POLLEN 10/03/2011 535.00 ACUTE GASTRITIS (WITHOUT HEMORRHAGE) 10/03/2011 780.79 OTHER MALAISE AND FATIGUE 10/03/2011 477.0 ALLERGIC RHINITIS DUE TO POLLEN 10/03/2011 535.00 ACUTE GASTRITIS (WITHOUT HEMORRHAGE) 10/03/2011 780.79 OTHER MALAISE AND FATIGUE 10/03/2011 477.0 ALLERGIC RHINITIS DUE TO POLLEN 10/03/2011 535.00 ACUTE GASTRITIS (WITHOUT HEMORRHAGE) 10/03/2011 780.79 OTHER MALAISE AND FATIGUE 10/03/2011 TRE DDS, MONCHO M 477.0 ALLERGIC RHINITIS DUE TO POLLEN 10/03/2011 TRE DDS, MONCHO M 535.00 ACUTE GASTRITIS (WITHOUT HEMORRHAGE) 10/03/2011 TRE DDS, MONCHO Teran 780.79 OTHER MALAISE AND FATIGUE 10/03/2011 KEYSHA COIL TAPER, EMERSON S 477.0 ALLERGIC RHINITIS DUE TO POLLEN 10/03/2011 KEYSHA COIL TAPER, EMERSON S 535.00 ACUTE GASTRITIS (WITHOUT HEMORRHAGE) 10/03/2011 KEYSHA COIL TAPER, EMERSON S 780.79 OTHER MALAISE AND FATIGUE 10/03/2011 KEYSHA COIL TAPER, EMERSON S 477.0 ALLERGIC RHINITIS DUE TO POLLEN 10/03/2011 KEYSHA COIL TAPER, EMERSON S 535.00 ACUTE GASTRITIS (WITHOUT HEMORRHAGE) 10/03/2011 KEYSHA COIL TAPER, EMERSON S 780.79 OTHER MALAISE AND FATIGUE 10/03/2011 KEYSHA COIL TAPER, EMERSON S 477.0 ALLERGIC RHINITIS DUE TO POLLEN 10/03/2011 KEYSHA COIL TAPER, EMERSON S 535.00 ACUTE GASTRITIS (WITHOUT HEMORRHAGE) 10/03/2011 KEYSHA COIL TAPER, EMERSON S 780.79 OTHER MALAISE AND FATIGUE 10/03/2011 KEYSHA COIL TAPER, EMERSON S 477.0 ALLERGIC RHINITIS DUE TO POLLEN 10/03/2011 KEYSHA COIL TAPER, EMERSON S 535.00 ACUTE GASTRITIS (WITHOUT HEMORRHAGE) 10/03/2011 KEYSHA COIL TAPER, EMERSON S 780.79 OTHER MALAISE AND FATIGUE 10/03/2011 THOMPSON DDS, RADHA 477.0 ALLERGIC RHINITIS DUE TO POLLEN 10/03/2011 THOMPSON DDS, RADHA 535.00 ACUTE GASTRITIS (WITHOUT HEMORRHAGE) 10/03/2011 THOMPSON TEJALS, RADHA 780.79 OTHER MALAISE AND FATIGUE 12/03/2011 Ot 780.50 SLEEP DISTURBANCE NOS 01/16/2012 728.71 PLANTAR FASCIAL FIBROMATOSIS 01/16/2012 728.71 PLANTAR FASCIAL FIBROMATOSIS 01/16/2012 728.71 PLANTAR FASCIAL FIBROMATOSIS 01/16/2012 728.71 PLANTAR FASCIAL FIBROMATOSIS 01/16/2012 TRE HOBSON, MONCHO Teran 728.71 PLANTAR FASCIAL FIBROMATOSIS 01/16/2012 KEYSHA MCGOVERN, EMERSON S 728.71 PLANTAR FASCIAL FIBROMATOSIS 01/16/2012 KEYSHA MCGOVERN, EMERSON S 728.71 PLANTAR FASCIAL FIBROMATOSIS 01/16/2012 KEYSHA COIL TAPER, EMERSON S 728.71 PLANTAR FASCIAL FIBROMATOSIS 01/16/2012 KEYSHA MCGOVERN, EMERSON S 728.71 PLANTAR FASCIAL FIBROMATOSIS 01/16/2012 DONNA TOURES, RADHA 728.71 PLANTAR FASCIAL FIBROMATOSIS 05/04/2012 706.2 SEBACEOUS CYST 05/04/2012 706.2 SEBACEOUS CYST 05/04/2012 TRE TOURES, MONCHO Teran 706.2 SEBACEOUS CYST 05/04/2012 KEYSHA COIL TAPER, EMERSON S 706.2 SEBACEOUS CYST 05/04/2012 KEYSHA COIL TAPER, EMERSON S 706.2 SEBACEOUS CYST 05/04/2012 KEYSHA COIL TAPER, EMERSON S 706.2 SEBACEOUS CYST 05/04/2012 KEYSHA COIL TAPER, EMERSON S 706.2 SEBACEOUS CYST 05/04/2012 DONNA TOURES, RADHA 706.2 SEBACEOUS CYST 05/24/2013 KEYSHA VILLANUEVAN, EMERSON S 789.06 ABDOMINAL PAIN EPIGASTRIC 05/24/2013 KEYSHA COIL TAPER, EMERSON S 789.06 ABDOMINAL PAIN EPIGASTRIC 05/24/2013 KEYSHA MCGOVERN, EMERSON S 789.06 ABDOMINAL PAIN EPIGASTRIC 05/24/2013 KEYSHA COIL TAPER, EMERSON S 789.06 ABDOMINAL PAIN EPIGASTRIC 05/24/2013 DONNA TOURES, RADHA 789.06 ABDOMINAL PAIN EPIGASTRIC 09/29/2013 THEO CHOPRA APRNNDA S 524.60 TMJ 09/29/2013 THEO CHOPRA APRNNDA S 524.60 TMJ 09/29/2013 KEYSHA MCGOVERNTHEOEMERSON S 524.60 TMJ 09/29/2013 DONNA TOURERADHA Guardado 524.60 TMJ 10/23/2015 A V76.51 SCREENING FOR MALIGNANT NEOPLASMS OF COLON 10/23/2015 A Z12.11 ENCOUNTER FOR SCREENING FOR MALIGNANT NEOPLASM OF COLON 05/14/2017 EMERSON CHOPRA Ot E04.2 NONTOXIC MULTINODULAR GOITER 11/19/2017 Be, Brooke-Connor W 305.1 TOBACCO USE DISORDER 11/19/2017 Be, Brooke-Connor W 723.4 BRACHIAL NEURITIS OR RADICULITIS NOS 11/19/2017 Be, Brooke-Connor W F17.290 NICOTINE DEPENDENCE, OTHER TOBACCO PRODUCT, UNCOMPLICATED 11/19/2017 Be, Brooke-Connor W M54.12 RADICULOPATHY, CERVICAL REGION 11/19/2017 Be, Brooke-Connor W V15.82 PERSONAL HISTORY OF TOBACCO USE 11/19/2017 Be, Brooke-Connor W Z87.891 PERSONAL HISTORY OF NICOTINE DEPENDENCE 11/19/2017 Be, Brooke-Connor W 305.1 TOBACCO USE DISORDER 11/19/2017 Be, Brooke-Connor W 723.4 BRACHIAL NEURITIS OR RADICULITIS NOS 11/19/2017 Be, Brooke-Connor W F17.290 NICOTINE DEPENDENCE, OTHER TOBACCO PRODUCT, UNCOMPLICATED 11/19/2017 Be, Brooke-Connor W M54.12 RADICULOPATHY, CERVICAL REGION 11/19/2017 Haile, Brooke-Connor W V15.82 PERSONAL HISTORY OF TOBACCO USE 11/19/2017 Be, Brooke-Cononr W Z87.891 PERSONAL HISTORY OF NICOTINE DEPENDENCE 05/26/2018 MARIA ISABEL MYERS, CATA Teran Ot Z01.818 ENCOUNTER FOR OTHER PREPROCEDURAL EXAMIN 05/28/2018 EMERSON CHOPRA Ot E04.2 NONTOXIC MULTINODULAR GOITER Procedures Code Description [place] [address] ROUTINE VENIPUNCTURE 10/28/2013 1771376 GFR CALC (RESULT ONLY) 10/28/2013 79048 CMP 10/28/2013 74982 LIPID PANEL 10/28/2013 Results Test Result Range CBC With Differential/Platelet - 05/08/16 12:34 WBC 7.8 x10E3/uL 3.4-10.8 RBC 5.31 x10E6/uL 4.14-5.80 Hemoglobin 13.9 g/dL 12.6-17.7 Hematocrit 40.6 % 37.5-51.0 MCV 77 fL 79-97 MCH 26.2 pg 26.6-33.0 MCHC 34.2 g/dL 31.5-35.7 RDW 17.5 % 12.3-15.4 Platelets 293 x10E3/uL 150-379 Neutrophils 56 % Lymphs 33 % Monocytes 8 % Eos 2 % Basos 1 % Neutrophils (Absolute) 4.4 x10E3/uL 1.4-7.0 Lymphs (Absolute) 2.5 x10E3/uL 0.7-3.1 Monocytes(Absolute) 0.6 x10E3/uL 0.1-0.9 Eos (Absolute) 0.2 x10E3/uL 0.0-0.4 Baso (Absolute) 0.0 x10E3/uL 0.0-0.2 Immature Granulocytes 0 % Immature Grans (Abs) 0.0 x10E3/uL 0.0-0.1 Comp. Metabolic Panel (14) - 05/08/16 12:34 Glucose, Serum 81 mg/dL 65-99 BUN 15 mg/dL 6-24 Creatinine, Serum 0.88 mg/dL 0.76-1.27 eGFR If NonAfricn Am 98 mL/min/1.73 >59 eGFR If Africn Am 113 mL/min/1.73 >59 BUN/Creatinine Ratio 17 9-20 Sodium, Serum 141 mmol/L 134-144 Potassium, Serum 4.4 mmol/L 3.5-5.2 Chloride, Serum 98 mmol/L 96-106 Carbon Dioxide, Total 23 mmol/L 18-29 Calcium, Serum 9.2 mg/dL 8.7-10.2 Protein, Total, Serum 7.0 g/dL 6.0-8.5 Albumin, Serum 4.6 g/dL 3.5-5.5 Globulin, Total 2.4 g/dL 1.5-4.5 A/G Ratio 1.9 1.1-2.5 Bilirubin, Total 0.6 mg/dL 0.0-1.2 Alkaline Phosphatase, S 78 IU/L 39-117 AST (SGOT) 21 IU/L 0-40 ALT (SGPT) 32 IU/L 0-44 Testosterone,Free and Total - 05/08/16 12:34 Testosterone, Serum 728 ng/dL [phone] Comment: Comment Free Testosterone(Direct) 7.6 pg/mL 7.2-24.0 TSH - 05/08/16 12:34 TSH 0.724 uIU/mL 0.450-4.500 CBC With Differential/Platelet - 08/29/16 09:07 WBC 6.6 x10E3/uL 3.4-10.8 RBC 5.35 x10E6/uL 4.14-5.80 Hemoglobin 15.3 g/dL 12.6-17.7 Hematocrit 46.4 % 37.5-51.0 MCV 87 fL 79-97 MCH 28.6 pg 26.6-33.0 MCHC 33.0 g/dL 31.5-35.7 RDW 15.1 % 12.3-15.4 Platelets 309 x10E3/uL 150-379 Neutrophils 58 % Lymphs 28 % Monocytes 8 % Eos 4 % Basos 1 % Neutrophils (Absolute) 3.9 x10E3/uL 1.4-7.0 Lymphs (Absolute) 1.9 x10E3/uL 0.7-3.1 Monocytes(Absolute) 0.5 x10E3/uL 0.1-0.9 Eos (Absolute) 0.2 x10E3/uL 0.0-0.4 Baso (Absolute) 0.1 x10E3/uL 0.0-0.2 Immature Granulocytes 1 % Immature Grans (Abs) 0.0 x10E3/uL 0.0-0.1 Ferritin, Serum - 08/29/16 09:07 Ferritin, Serum 20 ng/mL 30-400 Lipid Panel - 11/20/16 06:21 C/HDL 7.3 3.7-6.7 Cholesterol 219 mg/dL 100-240 HDL 30 mg/dL 30-85 LDL-Calculated 173 mg/dL 0-100 Trig 82 mg/dL 35-160 VLDL 16 mg/dL 0-42 PSA Yearly Screen - 11/27/16 17:44 PSA TOTAL 0.5 ng/mL 0.0-4.0 CBC - 04/18/17 10:57 WHITE BLOOD CELL COUNT 8.7 Thousand/uL 3.8-10.8 RED BLOOD CELL COUNT 5.47 Million/uL 4.20-5.80 HEMOGLOBIN 15.2 g/dL 13.2-17.1 HEMATOCRIT 45.8 % 38.5-50.0 MCV 83.7 fL 80.0-100.0 MCH 27.8 pg 27.0-33.0 MCHC 33.2 g/dL 32.0-36.0 RDW 13.1 % 11.0-15.0 PLATELET COUNT 319 Thousand/uL 140-400 MPV 9.4 fL 7.5-12.5 ABSOLUTE NEUTROPHILS 5733 cells/uL 4680-8448 ABSOLUTE LYMPHOCYTES 2132 cells/uL 850-3900 ABSOLUTE MONOCYTES 548 cells/uL 200-950 ABSOLUTE EOSINOPHILS 209 cells/uL 15-500 ABSOLUTE BASOPHILS 78 cells/uL 0-200 NEUTROPHILS 65.9 % NRG LYMPHOCYTES 24.5 % NRG MONOCYTES 6.3 % NRG EOSINOPHILS 2.4 % NRG BASOPHILS 0.9 % NRG Comprehensive Metabolic Panel - 05/06/18 07:31 Albumin 4.6 g/dL 3.6-5.1 ALP 84 U/L 35-130 ALT 34 U/L 6-45 Anion Gap 14 6-14 AST 21 U/L 2-40 BUN 11 mg/dL 5-25 Calcium 9.5 mg/dL 8.3-10.4 Chloride 105 mmol/L 95-114 CO2 25 mEq/L 22-33 Creat 0.98 mg/dL 0.50-1.50 eGFR 79 mL/min/1.73m2 >59 Globulin 2.6 g/dL 2.3-3.5 Glucose 107 mg/dL 70-110 Osmo 289 280-295 Potassium 4.4 mmol/L 3.5-5.3 Sodium 140 mmol/L 134-148 TBil 0.7 mg/dL 0.2-1.2 TP 7.2 g/dL 6.0-8.3 Encounters ACCT No. Visit Date/Time Discharge Status Pt. Type Provider Facility Loc./Unit Complaint [id number] 04/26/2014 13:09:00 04/26/2014 23:59:59 CLS Outpatient RADHA THOMPSON DDS [id number] 11/04/2013 11:19:00 11/04/2013 23:59:59 CLS Outpatient EMERSON CHOPRA APRN [id number] 10/28/2013 08:19:00 10/28/2013 23:59:59 CLS Outpatient EMERSON CHOPRA APRN [id number] 09/29/2013 14:57:00 09/29/2013 23:59:59 CLS Outpatient EMERSON CHOPRA APRN [id number] 05/24/2013 15:59:00 05/24/2013 23:59:59 CLS Outpatient EMERSON CHOPRA APRN [id number] 12/08/2012 07:56:00 12/08/2012 23:59:59 CLS Outpatient TRE JOCE MONCHO Teran [id number] 05/04/2012 11:58:00 05/04/2012 23:59:59 CLS Outpatient [id number] 03/12/2012 13:27:00 03/12/2012 23:59:59 CLS Outpatient [id number] 01/16/2012 10:53:00 01/16/2012 23:59:59 CLS Outpatient [id number] 11/13/2012 07:45:00 Document Registration [id number] 05/04/2018 10:00:00 05/04/2018 23:59:59 CLS Outpatient EMERSON CHOPRA APRN [facility] [place] [id number] 04/18/2017 11:00:00 Document Registration [id number] 08/30/2016 08:48:00 Document Registration [id number] 05/06/2018 07:25:00 05/06/2018 23:59:00 DIS Outpatient THEO CHOPRANDA [id number] 01/08/2018 08:36:00 01/08/2018 23:59:00 DIS Outpatient SELF, PHY [id number] 11/25/2017 12:06:00 11/25/2017 23:59:00 DIS Outpatient Be, Alicja [id number] 11/19/2017 06:06:00 11/19/2017 23:59:00 DIS Outpatient Alicja Be [id number] 01/08/2017 14:06:00 01/08/2017 23:59:00 DIS Outpatient SELF, PHY [id number] 11/27/2016 17:40:00 11/27/2016 23:59:00 DIS Outpatient Alicja Be [id number] 11/20/2016 06:11:00 11/20/2016 23:59:00 DIS Outpatient Alicja Be [id number] 10/30/2015 00:00:00 Document Registration [id number] 05/10/2016 10:09:00 Document Registration [id number] 05/26/2018 05:32:00 05/26/2018 13:25:00 DIS Outpatient CATA NICOLAS MD Via [facility] PREOP LUMP RIGHT SIDE OF NECK [id number] 04/21/2017 12:41:00 04/21/2017 23:59:59 CLS Outpatient EMERSON CHOPRA [facility] RAD R59.9 LYMPH NODE ENLARGEMENT [id number] 05/29/2018 06:58:00 ACT Outpatient CATA NICOLAS MD [facility] SDC LUMP RIGHT SIDE OF NECK [id number] 12/02/2011 21:26:00 Document Registration
--- OUTSIDE RECORDS SUMMARY | 2018-05-29 07:11 | XMS REPORT ---
Author Author ROSALIND Holland Organization [facility] Address Unknown Care Team Providers Care Story Reader Name Role Phone ROSALIND Holland Unavailable PROBLEMS Type Condition ICD9-CM Code [id number] Code Onset Dates Condition Status SNOMED Code Problem Depressive disorder, not elsewhere classified F32.9 Active 64136253 Problem Encounter for dental examination Z01.20 Active 159672800 Problem Eye exam abnormal R93.8 Active 030858552 Problem Abnormal CBC R79.89 Active 301153688 ALLERGIES Substance Reaction Event Type Date Status Bananas Unknown Non Drug Allergy Feb, Active [place] Unknown Non Drug Allergy Feb, Active SOCIAL HISTORY No smoking Hx information available PLAN OF CARE Activity Details Follow Up prn Reason:crown #31 VITAL SIGNS Height 70 in 2016-03-14 Blood pressure systolic 113 mmHg 2016-03-14 Blood pressure diastolic 86 mmHg 2016-03-14 MEDICATIONS Medication Instructions Dosage Frequency Start Date End Date Duration Status Vitamin D3 5,000 unit 2 times per day Oct, Active Cymbalta 60 MG Orally Once a day 1 capsule 24h Active Atorvastatin Calcium 40 MG Orally Once a day 1 tablet 24h Active Invega Trinza 410 MG/1.315ML 1.315 ml Active RESULTS No Results PROCEDURES Procedure Date Ordered Related Diagnosis Body Site LTD ORAL EVALUATION - PROBLEM FOCUS Mar 14, 2016 INTRAORL-PERIAPICAL 1 FILM 47843 Mar 14, 2016 IMMUNIZATIONS No Known Immunizations
--- OUTSIDE RECORDS SUMMARY | 2018-05-29 07:11 | XMS REPORT ---
Author Author CECILE SYED [facility] Address [address] [place] [address] Care Team Providers Care Water Quality Analyst Name Role Phone CECILE SYED Unavailable PROBLEMS Type Condition ICD9-CM Code LTD58-CS Code Onset Dates Condition Status SNOMED Code Problem Partner relational problem Z63.0 Active 2282979526998 Problem Other iron deficiency anemia D50.8 Active 00611018 Problem Abnormal CBC R79.89 Active 630577749 Problem Depressive disorder, not elsewhere classified F32.9 Active 49331423 Problem Eye exam abnormal R93.8 Active [id number] ALLERGIES No Information ENCOUNTERS Encounter Location Date Diagnosis [facility] [id number] [place] [id number] Sep, [facility] [id number] [place] [address] 30379- 6739 May, Partner relational problem Z63.0 [facility] [id number] [place] [address] 51414- 7283 Apr, Partner relational problem Z63.0 [facility] [id number] [place] [address] 87999- 2968 Mar, Other iron deficiency anemia D50.8 [facility] [id number] [place] [address] 53474- 4360 Mar, Lymph node enlargement R59.9 and Other iron deficiency anemia D50.8 [facility] [address] [address] Mar, Partner relational problem Z63.0 [facility] [id number] [place] [address] 69596- 6211 Dec, [facility] [address], [place] [id number] Dec, Dental examination Z01.20 [facility] [id number] [place] [address] 17013- 7376 Oct, [facility] [id number] [place] [address] 63766- 6541 Oct, [facility] [id number] [place] [address] 78517- 6150 Aug, Anemia, unspecified type D64.9 [facility] [id number] [place] [address] 19164- 9778 15 Apr, 2016 [facility] [address] [address]- [address] 15 Apr, 2016 Depressive disorder, not elsewhere classified F32.9 [facility] [id number] [place] [address] 85546- 9915 15 Apr, 2016 Other fatigue R53.83 [facility] [id number] [place] [id number] Mar, Encounter for dental examination Z01.20 [facility] [id number] [place] [address] [id number] Feb, Dental examination Z01.20 [facility] [id number] [place] [address] 11815- 5556 May, [facility] [id number] [place] [address] 03397- 0015 16 Apr, 2015 Vision changes H53.9 [facility] [address] [place] [address] 62119- 4798 Jun, [facility] [id number] [place] [address] 52374- 7507 Jun, [facility] [id number] [place] [address] 73864- 7687 Apr, [facility] [id number] [place] [address] 25983- 3425 Apr, [facility] [place] [facility] [address] [id number] [place] [address] 4113 Apr, [facility] [place] [facility] [address] [id number] [place] [address] 9115 Apr, [facility] [place] [facility] [address] [id number] [place] [address] 6852 Oct, [facility] [place] [facility] [address] [id number] [place] [address] 7093 Oct, [facility] [place] [facility] [address] [id number] [place] [address] 1324 Oct, [facility] [place] [facility] [address] [id number] [place] [address]- 2465 Oct, [facility] [place] [facility] [address] [id number] [place] [address]- 2509 Oct, [facility] [place] [facility] [address] [id number] [place] [address]- 7575 Oct, [facility] [place] [facility] [address] [id number] [place] [address]- 3655 Sep, [facility] [place] [facility] [address] [id number] [place] [address] 3998 Sep, [facility] [place] [facility] [address] [id number] [place] [address] 3894 July, [facility] [place] [facility] [address] [id number] [place] [address] 8853 July, [facility] [place] [facility] [address] [id number] [place] [address]- 2831 May, [facility] [place] [facility] [address] [id number] [place] [address] 4221 May, [facility] [place] [facility] [address] [id number] [place] [address]- 2648 Apr, [facility] [place] [facility] [address] [id number] [place] [address]- 9646 Apr, [facility] [place] [facility] [address] [id number] [place] [address]- 4077 Mar, [facility] [place] [facility] [address] [id number] [place] [address]- 8321 Mar, [facility] [place] [facility] [address] [id number] [place] [address]- 0925 Oct, [facility] [place] [facility] [address] [id number] [place] [address]- 6617 Oct, [facility] [place] [facility] [address] [id number] [place] [address]- 2845 Oct, [facility] [place] [facility] [address] [id number] [place] [address]- 8200 Apr, [facility] [place] [facility] [address] [id number] [place] [address]- 1538 Feb, [facility] [place] [facility] [address] [id number] [place] [address] 9631 Feb, [facility] [place] [facility] [address] [id number] [place] [address]- 1838 Jan, [facility] [place] [facility] [address] [id number] [place] [address]- 9739 Jan, [facility] [place] [facility] [address] [id number] [address] 4889 Dec, [facility] [place] [facility] [address] [id number] [place] [address]- 7016 Dec, [facility] [place] [facility] [address] [id number] [place] [address]- 4988 Dec, [facility] [place] [facility] [address] [id number], [place] [address] 9930 Dec, [facility] [place] [facility] [address] [id number], [place] [address] 9356 Dec, [facility] [address] [address] 8[address] Dec, [facility] [id number] [address] 8[address] Nov, [facility] [id number] [address]- 7246 Nov, [facility] [id number] [address]- 1853 Nov, [facility] [address] [address] Oct, [facility] [id number] [address] Sep, [facility] [address] [address] 6[address] Sep, [facility] [address] [address]- 1054 Sep, [facility] [address] [address] 1588 Jun, [facility] [id number] [address]- 6726 Jun, [facility] [id number] [address]- 7486 Jun, [facility] [id number] [address] 6969 Feb, [facility] [address] [place] [address]- 4886 Jan, [facility] [address] [address]- 1536 July, IMMUNIZATIONS No Known Immunizations SOCIAL HISTORY Never Assessed REASON FOR VISIT Couple Intake PLAN OF CARE Activity Details Follow Up 2 Weeks Reason:BH F/U VITAL SIGNS MEDICATIONS Medication Instructions Dosage Frequency Start Date End Date Duration Status Vitamin D3 5,000 unit 2 times per day Oct, Not-Taking Viibryd Not-Taking Pravastatin Sodium Active Atorvastatin Calcium 40 mg Orally Once a day 1/2 tablet 24h Not- Taking Multi Complete Not-Taking Invega Trinza 410 MG/1.315ML 1.315 ml Active Vitamin B Complex Active BuPROPion HCl 100 MG Orally Once a day 1 capsule 24h Active RESULTS No Results PROCEDURES Procedure Date Ordered Result Body Site RELATIONSHIP COUN Mar 26, 2017 INSTRUCTIONS MEDICATIONS ADMINISTERED No Known Medications MEDICAL (GENERAL) HISTORY Type Description Date Medical History depression Medical History back trouble (pinched vertebrae) Surgical History nasal reconstruction Surgical History tonsillectomy Surgical History colonoscy 2016 Hospitalization History surgeries Hospitalization History Mental Illness 2008
[2018-05-29] MEDS ORDERED: ceFAZolin 2 GM IV Premixed 50 ML IV ONE (07:15)
[2018-05-29] MEDS ORDERED: BUP/EPI 0.5% 1:200,000 (SENSORCAINE) 30 ML VIAL ONE (07:22)
[2018-05-29] MEDS ORDERED: fentaNYL INJECTION 100 MCG/2 ML AMP ONE (07:35)
[2018-05-29] MEDS ORDERED: proPOfol 200 MG/20 ML (DIPRIVAN) VIAL IV ONE ×2 (07:35→09:02)
[2018-05-29] MEDS ORDERED: ONDANSETRON 4 MG/2 ML (SDV) Z0FRAN ONE (07:35)
[2018-05-29] MEDS ORDERED: LIDOCAINE PF 2% 5 ML (XYLOCAINE) VIAL ONE (07:35)
[2018-05-29] MEDS ORDERED: MIDAZOLAM 2 MG/2 ML (VERSED) VIAL ONE (07:36)
[2018-05-29] MEDS ORDERED: DEXAMETHASONE 10 MG/ML (DECADRON) 1 ML VIAL ONE (07:37)
[2018-05-29] MEDS ORDERED: SEVOFLURANE (ULTANE) 15 ML INHAL SOLN ONE ×3 (07:37→09:04)
[2018-05-29] MEDS ORDERED: FLUT1AER IH (07:50)
[2018-05-29] MEDS ORDERED: PALI273S IM (07:50)
--- NOTE | 2018-05-29 08:37 | Progress Note-Pre Operative ---
Pre-Operative Progress Note H&P Reviewed The H&P was reviewed, patient examined and no changes noted. Date Seen by Provider: May 14, 2018 Time Seen by Provider: 11:00 Date H&P Reviewed: May 29, 2018 Time H&P Reviewed: 08:36 Pre-Operative Diagnosis: Lipoma-R neck CATA NICOLAS MD May 29, 2018 08:36
--- NOTE | 2018-05-29 09:13 | Operative Report ---
Operative Report Date of Procedure/Surgery May 29, 2018 Surgeon (s) CATA NICOLAS MD Director Pharmacology (s): N/A Post-Operative Diagnosis 2 cm subcutaneous lipoma right side of neck Procedure Performed Excision Description of Procedure Anesthesia Type: General Estimated blood loss (mL): Minimal Specimen(s) collected/removed Lipoma Description of the Procedure Indication for the procedure: This gentleman presented with a 2 cm, soft and lobulated lump over the right side of the neck, just posterior to the sternocleidomastoid muscle, having the sonographic features of a simple lipoma. He was offered excision under general anesthetic. Informed consent was obtained after reviewing the operative details and complications of hematoma, wound infection and recurrence. Description of the procedure: He was placed supine on the operating table and general anesthesia induced. Ancef was administered intravenously as prophylaxis against wound infection. The area was prepared and draped in the usual sterile manner. Preemptive reduce it was established using 0.5 percent Marcaine with epinephrine. A 3 cm vertical incision was made and the lipoma excised intact. Hemostasis was achieved using cautery and the fascia closed using 3-0 Vicryl for the subcutaneous tissue and a 4-0 Vicryl for skin, in a subcuticular fashion. Steri -Strips and a nonadherent dressing were then applied. He tolerated the procedure well, was extubated in the operative room and taken to the recovery room in a stable condition. Findings of the Procedure See operative report Allergies and Home Medications Allergies Coded Allergies: No Known Drug Allergies (Unverified , 05/26/18) Home Medications Bupropion HCl 300 Mg Tab.er.24h, 300 MG PO DAILY, (Reported) Fluticasone/Vilanterol 1 Each Blst.w.dev, 1 EACH IH DAILY, (Reported) Gabapentin 300 Mg Capsule, 300 MG PO DAILY, (Reported) Pravastatin Sodium 40 Mg Tablet, 40 MG PO HS, (Reported) Sertraline HCl 50 Mg Tablet, 50 MG PO DAILY, (Reported) Tamsulosin HCl 0.4 Mg Cap.er.24h, 0.4 MG PO DAILY, (Reported) Ubiquinol 100 Mg Capsule, 100 MG PO DAILY, (Reported) Varenicline Tartrate 1 Mg Tablet, 1 MG PO BID, (Reported) Patient Home Medication List Home Medication List Reviewed: Yes CATA NICOLAS MD May 29, 2018 09:13
[2018-05-29] MEDS ORDERED: TRAM50TA2 PO (09:14)
--- NOTE | 2018-05-29 09:15 | Discharge Inst-Simple/Standard ---
Discharge Inst-Standard Discharge Medications New, Converted or Re-Newed RX: RX on Chart Patient Instructions/Follow Up Plan of Care/Instructions/FU: Band-Aids off in 48 hours. To call if any concerns arise. No sutures to be removed Activity as Tolerated: Yes Discharge Diet: No Restrictions CATA NICOLAS MD May 29, 2018 09:15
[2018-05-29 10:15] VITALS: BP 118/71
[2018-05-29 10:45] VITALS: BP 110/76
--- NOTE | 2018-05-29 10:53 | Anesthesia-General Post-Op ---
General Patient Condition Mental Status/LOC: Same as Preop Cardiovascular: Satisfactory Nausea/Vomiting: Absent Respiratory: Satisfactory Pain: Controlled Complications: Absent Post Op Complications Complications None Follow Up Care/Instructions Patient Instructions None needed. Anesthesia/Patient Condition Patient Condition Patient is doing well, no complaints, stable vital signs, no apparent adverse anesthesia problems. No complications reported per nursing. KRISTI YEBOAH CRNA May 29, 2018 10:53
[2018-05-29] MEDS ORDERED: morphine INJ 10 MG/ML 1ML (SYR OR VIAL) IVP ONE (11:00)
[2018-05-29] MEDS ORDERED: ONDANSETRON 4 MG/2 ML (SDV) Z0FRAN IVP PRN (11:00)
[2018-05-29 11:05] VITALS: BP 116/70
[2018-05-29 11:07] VITALS: BP 116/70
== END 2018-05-29 11:07 | disposition home or self-care (01) ==
LOC: SDC 06:58
PROVIDERS: ATTEND Surgery
DX: D17.0 Benign lipomatous neoplasm of skin and subcutaneous tissue of head, face and neck (principal); J45.909 Unspecified asthma, uncomplicated; E78.5 Hyperlipidemia, unspecified; K21.9 Gastro-esophageal reflux disease without esophagitis; F32.9 Major depressive disorder, single episode, unspecified; Z87.891 Personal history of nicotine dependence; Z79.899 Other long term (current) drug therapy
CPT/HCPCS: 87081

== ENCOUNTER 2020-07-11 05:37 | Outpatient (CLI) | payer MEDICAID, MEDICARE ==
[~2020-07-11] VITALS: Ht 177.8 cm; Wt 85.7 kg
[~2020-07-11 05:37] MED LIST changes: +FLUT1AER IH; +PALI273S IM; +TRM50T PO
== END 2020-07-11 13:57 | disposition home or self-care (01) ==
LOC: PREOP 05:37
PROVIDERS: ATTEND Surgery
DX: Z01.818 Encounter for other preprocedural examination (principal)

== ENCOUNTER 2020-08-08 08:41 | Day surgery (SDC) | payer MEDICAID, MEDICARE ==
[2020-08-08] VITALS (10 sets, daily range): BP systolic 114–136; BP diastolic 56–88
[~2020-08-08] VITALS: Ht 177.8 cm; Wt 85.7 kg
[~2020-08-08 08:41] MED LIST changes: +UBIQ100C2 PO; -UBIQ100C3 PO
[2020-08-08] MEDS ORDERED: LACTATED RINGERS 1,000 ML IV STA (08:49)
[2020-08-08] MEDS ORDERED: LACTATED RINGERS 1,000 ML IV ONE (08:59)
[2020-08-08] MEDS ORDERED: PROPOFOL INJECTION 50 ML IV ONE (10:29)
[2020-08-08] MEDS ORDERED: MIDAZOLAM 2 MG/2 ML (VERSED) VIAL ONE (10:29)
--- NOTE | 2020-08-08 11:23 | Progress Note-Post Operative ---
Post-Operative Progess Note Surgeon (s)/Supervisor Felting (s) Surgeon CHRISTINE ADAM DO Supervisor Felting: na Pre-Operative Diagnosis hx colon polyps Post-Operative Diagnosis sigmoid, rectal polyps Procedure & Operative Findings Date of Procedure 08/08/20 Procedure Performed/Findings colonoscopy c hot bx polypectomy x 3 Anesthesia Type per mower mechanic Estimated Blood Loss Estimated blood loss (mL): none Specimens/Packing Specimens Removed colon polyps CHRISTINE ADAM DO August 08, 2020 11:23
--- NOTE | 2020-08-08 11:23 | Discharge Inst-Simple/Standard ---
Discharge Inst-Standard Patient Instructions/Follow Up Plan of Care/Instructions/FU: 2 weeks Ricky Activity as Tolerated: Yes Discharge Diet: Regular Diet CHRISTINE ADAM DO August 08, 2020 11:23
--- NOTE | 2020-08-08 14:51 | Anesthesia-General Post-Op ---
MAC Patient Condition Mental Status/LOC: Same as Preop Cardiovascular: Satisfactory Nausea/Vomiting: Absent Respiratory: Satisfactory Pain: Controlled Complications: Absent Post Op Complications Complications None Follow Up Care/Instructions Patient Instructions None needed. Anesthesiology Discharge Order Discharge Order Patient is doing well, no complaints, stable vital signs, no apparent adverse anesthesia problems. No complications reported per nursing. YAIR AGUIRRE CRNA August 08, 2020 14:51
--- NOTE | 2020-08-08 15:27 | OPERATIVE REPORT ---
DATE OF SERVICE: 08/08/2020 PREOPERATIVE DIAGNOSIS: History of colon polyps. POSTOPERATIVE DIAGNOSES: Sigmoid and rectal polyps. PROCEDURE: Colonoscopy with hot biopsy polypectomy x3. SURGEON: Christine García DO ANESTHESIA: Per BRIDGE GANG WORKER. ESTIMATED BLOOD LOSS: None. COMPLICATIONS: None. INDICATIONS: The patient is a 55-year-old male with history of colon polyps. He understands risks and benefits of procedure and wished to proceed with procedure. Consent was signed in the chart. DESCRIPTION OF PROCEDURE: The patient was taken to the endoscopy suite, placed in left lateral recumbent position. Timeout was performed. Digital rectal exam was performed. There were no palpable polyps, masses or ulcerations. Scope was inserted in the rectum, advanced all the way to cecum without difficulty. No polyps, masses or ulcerations within the cecum. Prep was adequate. Scope was then slowly retracted back. No polyps, masses or ulcerations within the ascending, transverse and descending colon and sigmoid colon, a small polyp was present, which hot biopsy polypectomy was performed. Scope was continuously retracted back into the rectum where two other polyps were present, which hot biopsy polypectomy was performed. Scope was retroflexed noting no other pathology. Scope was returned to its normal position, slowly withdrawn until completely removed. The patient tolerated procedure well without any complications, taken to recovery room in stable condition. RECOMMENDATIONS: The patient will follow up on pathology in 2 weeks and the need repeat colonoscopy in 5 years. If any issues before that be seen at that time. Job ID: [id number] DocumentID: [id number] Dictated Date: 08/08/2020 11:22:51 [employer] Supervisor Date: 08/08/2020 15:27:05 Dictated By: CHRISTINE GARCÍA DO
== END 2020-08-08 12:10 | disposition home or self-care (01) ==
LOC: ENDO 08:41
PROVIDERS: ATTEND Surgery
DX: K63.5 Polyp of colon (principal); K21.9 Gastro-esophageal reflux disease without esophagitis; E78.5 Hyperlipidemia, unspecified; F17.210 Nicotine dependence, cigarettes, uncomplicated; Z79.899 Other long term (current) drug therapy

== ENCOUNTER → 2020-12-14 | Outpatient (CLI) | payer MEDICARE, OTHER ==
--- NOTE | 2020-12-14 13:13 | Diagnostic Imaging Report ---
EXAMINATION: CT chest without contrast (lung screening). TECHNIQUE: Multiple contiguous axial images were obtained through the chest without the use of intravenous contrast according to lung cancer screening protocol. All CT scans use one or more of the following dose optimizing techniques: automated exposure control, MA and/or KvP adjustment based on patient size and exam type or iterative reconstruction. HISTORY: 47 pack year history of smoking. COMPARISON: None available. FINDINGS: There is no edema or pneumonia. No pleural effusion. No pneumothorax. No suspicious nodules. There is no axillary or supraclavicular lymphadenopathy. There is no mediastinal lymphadenopathy. Heart size is normal. There are no coronary artery calcifications. No pericardial effusion. Aorta is normal in caliber. Limited views of the upper abdomen show a cyst in the liver. There are no suspicious osseus lesions. IMPRESSION: 1. No suspicious pulmonary nodules. LUNG-RADS CATEGORY: 1 MODIFIER: None. Dictated by: Dictated on workstation # [id number]
== END ==
LOC: RAD 10:58
PROVIDERS: ATTEND Nurse Practitioner
DX: Z12.2 Encounter for screening for malignant neoplasm of respiratory organs (principal); F17.210 Nicotine dependence, cigarettes, uncomplicated
CPT/HCPCS: 71271